=== PATIENT | male | born 1985 | race Caucasian/White ===

== ENCOUNTER 2022-08-20 10:09 | Inpatient (IN) | payer OTHER ==
[2022-08-20 10:53] VITALS: BMI 29.4
[2022-08-20] MEDS ORDERED: BENZOCAINE/MENTHOL (CHLORASEPTIC ) LOZENGE MM PRN (11:59)
[2022-08-20] MEDS ORDERED: DICYCLOMINE HCL 10 MG CAPSULE PO PRN (11:59)
[2022-08-20] MEDS ORDERED: NALOXONE HCL (KLOXXADO) 8 MG SPRAY NS PRN (11:59)
[2022-08-20] MEDS ORDERED: MAGNESIUM HYDROX 2400MG/30ML ORAL SUSPENSION 30 ML CUP PO PRN (11:59)
[2022-08-20] MEDS ORDERED: ACETAMINOPHEN 325 MG TABLET (FP) PO PRN ×2 (11:59)
[2022-08-20] MEDS ORDERED: IBUPROFEN 600 MG TABLET (FP) PO PRN (11:59)
[2022-08-20] MEDS ORDERED: ONDANSETRON *ODT* 4 MG TABLET SL PRN (11:59)
[2022-08-20] MEDS ORDERED: MAGNESIUM CITRATE 300 ML BOTTLE PO PRN (11:59)
[2022-08-20] MEDS ORDERED: IBUPROFEN 400 MG TABLET (FP) PO PRN (11:59)
[2022-08-20] MEDS ORDERED: NICOTINE POLACRILEX 2 MG GUM BUC PRN (11:59)
[2022-08-20] MEDS ORDERED: BISMUTH SUBSALICYLATE 524 MG/30 ML PO PRN (11:59)
[2022-08-20] MEDS ORDERED: MAG HYDROX/AL HYDROX/SIMETH 30 ML UNIT-DOSE CUP PO PRN (11:59)
[2022-08-20] MEDS ORDERED: LOPERAMIDE HCL 2 MG CAPSULE PO PRN (11:59)
[2022-08-20] MEDS ORDERED: ALBUTEROL SO4 HFA INHALER IH SCH (12:15)
[2022-08-20] MEDS: PRENATAL VITAMINS W/ FOLIC ACID TABLET (FP) PO SCH (13:02)
[2022-08-20] MEDS ORDERED: ALBUTEROL SO4 HFA INHALER IH PRN (13:02)
[2022-08-20 15:28] LABS: HEMATOCRIT 40.1 % (35.4-49); MCH 30.1 pg (25.7-33.7); MCHC 34.9 g/dl (32.0-35.9); MEAN CELL VOLUME 86.1 fl (80-96); MEAN PLT VOLUME 7.6 fl (7.5-11.1); PLATELET COUNT 336 10^3/uL (134-434); RBC 4.66 M/mm3 (4.00-5.60); RDW 13.2 % (11.9-15.9); WHITE BLOOD COUNT 6.3 K/mm3 (4.0-10.0)
[2022-08-20 15:37] LABS: ALBUMIN 3.5 g/dl (3.4-5.0); CALCIUM 8.5 mg/dL (8.5-10.1)
[2022-08-20 15:39] LABS: BLOOD UREA NITROGEN 8.6 mg/dL (7-18); CREATININE 0.9 mg/dL (0.55-1.3)
[2022-08-20 15:40] LABS: BILIRUBIN,TOTAL 0.2 mg/dL (0.2-1); TOT PROT 6.8 g/dl (6.4-8.2)
[2022-08-20] MEDS: NICOTINE 10 MG CARTRIDGE (INHALER) IH PRN ×2 (18:15→22:41)
[2022-08-20] MEDS ORDERED: MELATONIN 5 MG TABLETS PO SCH (22:00)
[2022-08-20] MEDS ORDERED: THIAMINE HCL 100 MG TABLET (FP) PO SCH (22:00)
[2022-08-20] MEDS: METHOCARBAMOL 500 MG TABLET PO PRN (22:43)
[2022-08-20] MEDS: hydrOXYzine PAMOATE 25 MG CAPSULE (FP) PO PRN (22:43)
[2022-08-21 09:44] VITALS: RESP 16
[2022-08-21] MEDS: PRENATAL VITAMINS W/ FOLIC ACID TABLET (FP) PO SCH (10:41)
[2022-08-21] MEDS: hydrOXYzine PAMOATE 25 MG CAPSULE (FP) PO PRN (10:42)
[2022-08-21] MEDS: METHOCARBAMOL 500 MG TABLET PO PRN (10:42)
[2022-08-21 13:06] VITALS: BP 115/72; PULSE 62; TEMP 97.7
[2022-08-21] MEDS ORDERED: MELATONIN 5 MG TABLETS PO SCH (22:00)
== END 2022-08-21 13:05 | disposition other institution (70) | DRG 774 ==
LOC: YASAS 10:09 → UNDOADMIN 11:47 → Y3N 11:47
PROVIDERS: ADMIT Allergy & Immunology; ATTEND Surgery
PROC: HZ2ZZZZ Detoxification Services for Substance Abuse Treatment (ICD-10-PCS; principal; 2022-08-20)
DX: F10.230 Alcohol dependence with withdrawal, uncomplicated (principal); F14.20 Cocaine dependence, uncomplicated; F12.20 Cannabis dependence, uncomplicated; F17.210 Nicotine dependence, cigarettes, uncomplicated; F19.282 Other psychoactive substance dependence with psychoactive substance-induced sleep disorder; F41.8 Other specified anxiety disorders; I10 Essential (primary) hypertension; J45.20 Mild intermittent asthma, uncomplicated; Z56.0 Unemployment, unspecified; Z59.00 Homelessness unspecified
CPT/HCPCS: 36415; 80053; 85027; 86780; 87811; C9803-CS; U0003; U0005

== ENCOUNTER 2022-08-21 13:10 | Inpatient (IN) | payer OTHER ==
[2022-08-21] MEDS ORDERED: MAG HYDROX/AL HYDROX/SIMETH 30 ML UNIT-DOSE CUP PO PRN (14:52)
[2022-08-21] MEDS ORDERED: MAGNESIUM CITRATE 300 ML BOTTLE PO PRN (14:52)
[2022-08-21] MEDS ORDERED: IBUPROFEN 400 MG TABLET (FP) PO PRN (14:52)
[2022-08-21] MEDS ORDERED: BENZOCAINE/MENTHOL (CHLORASEPTIC ) LOZENGE MM PRN (14:52)
[2022-08-21] MEDS ORDERED: guaiFENesin 200 MG/10 ML 10 ML UNIT-DOSE CUPS PO PRN (14:52)
[2022-08-21] MEDS ORDERED: NICOTINE POLACRILEX 2 MG GUM BUC PRN (14:52)
[2022-08-21] MEDS ORDERED: MAGNESIUM HYDROX 2400MG/30ML ORAL SUSPENSION 30 ML CUP PO PRN (14:52)
[2022-08-21] MEDS ORDERED: LOPERAMIDE HCL 2 MG CAPSULE PO PRN (14:52)
[2022-08-21] MEDS ORDERED: ACETAMINOPHEN 325 MG TABLET (FP) PO PRN (14:52)
[2022-08-21] MEDS ORDERED: ALBUTEROL SO4 HFA INHALER IH PRN (14:53)
[2022-08-21] MEDS: NICOTINE 10 MG CARTRIDGE (INHALER) IH PRN (17:40)
[2022-08-21] MEDS: THIAMINE HCL 100 MG TABLET (FP) PO SCH (21:30)
[2022-08-21] MEDS: MELATONIN 5 MG TABLETS PO PRN (21:30)
[2022-08-22 06:47] VITALS: RESP 18
[2022-08-22] MEDS: PRENATAL VITAMINS W/ FOLIC ACID TABLET (FP) PO SCH (10:26)
[2022-08-22] MEDS: NICOTINE 10 MG CARTRIDGE (INHALER) IH PRN ×2 (12:00→21:35)
[2022-08-22] MEDS: MELATONIN 5 MG TABLETS PO PRN (21:34)
[2022-08-22] MEDS: THIAMINE HCL 100 MG TABLET (FP) PO SCH (21:34)
[2022-08-23] MEDS: NICOTINE 10 MG CARTRIDGE (INHALER) IH PRN (10:13)
[2022-08-23] MEDS: PRENATAL VITAMINS W/ FOLIC ACID TABLET (FP) PO SCH (10:13)
[2022-08-23] MEDS: THIAMINE HCL 100 MG TABLET (FP) PO SCH (21:21)
[2022-08-23] MEDS: MELATONIN 5 MG TABLETS PO PRN (21:21)
[2022-08-24] MEDS: PRENATAL VITAMINS W/ FOLIC ACID TABLET (FP) PO SCH (10:23)
[2022-08-24] MEDS: NICOTINE 10 MG CARTRIDGE (INHALER) IH PRN ×3 (10:24→18:20)
[2022-08-24] MEDS: THIAMINE HCL 100 MG TABLET (FP) PO SCH (21:11)
[2022-08-24] MEDS: MELATONIN 5 MG TABLETS PO PRN (21:11)
[2022-08-25] MEDS: NICOTINE 10 MG CARTRIDGE (INHALER) IH PRN ×3 (08:07→21:36)
[2022-08-25] MEDS: PRENATAL VITAMINS W/ FOLIC ACID TABLET (FP) PO SCH (10:16)
[2022-08-25] MEDS: MELATONIN 5 MG TABLETS PO PRN (21:36)
[2022-08-25] MEDS: THIAMINE HCL 100 MG TABLET (FP) PO SCH (21:36)
[2022-08-25] MEDS: SUVOREXANT 10 MG TABLET PO PRN (22:06)
[2022-08-26] MEDS: NICOTINE 10 MG CARTRIDGE (INHALER) IH PRN ×2 (09:57→21:39)
[2022-08-26] MEDS: PRENATAL VITAMINS W/ FOLIC ACID TABLET (FP) PO SCH (09:57)
[2022-08-26] MEDS: MELATONIN 5 MG TABLETS PO PRN (21:39)
[2022-08-26] MEDS: SUVOREXANT 10 MG TABLET PO PRN (21:39)
[2022-08-26] MEDS: THIAMINE HCL 100 MG TABLET (FP) PO SCH (21:39)
[2022-08-27] MEDS: PRENATAL VITAMINS W/ FOLIC ACID TABLET (FP) PO SCH (10:07)
[2022-08-27] MEDS: NICOTINE 10 MG CARTRIDGE (INHALER) IH PRN (16:07)
[2022-08-27] MEDS: THIAMINE HCL 100 MG TABLET (FP) PO SCH (21:41)
[2022-08-27] MEDS: MELATONIN 5 MG TABLETS PO PRN (21:42)
[2022-08-27] MEDS: SUVOREXANT 10 MG TABLET PO PRN (21:42)
[2022-08-28] MEDS: NICOTINE 10 MG CARTRIDGE (INHALER) IH PRN ×3 (06:30→21:37)
[2022-08-28] MEDS: PRENATAL VITAMINS W/ FOLIC ACID TABLET (FP) PO SCH (10:23)
[2022-08-28] MEDS: THIAMINE HCL 100 MG TABLET (FP) PO SCH (21:36)
[2022-08-28] MEDS: MELATONIN 5 MG TABLETS PO PRN (21:36)
[2022-08-28] MEDS: SUVOREXANT 10 MG TABLET PO PRN (21:37)
[2022-08-29] MEDS: NICOTINE 10 MG CARTRIDGE (INHALER) IH PRN ×4 (06:37→22:12)
[2022-08-29] MEDS: PRENATAL VITAMINS W/ FOLIC ACID TABLET (FP) PO SCH (10:27)
[2022-08-29] MEDS: P-EPHED 60MG/TRIPROLIDI 2.5MG TABLET PO PRN ×2 (10:28→21:35)
[2022-08-29] MEDS: MELATONIN 5 MG TABLETS PO PRN (21:33)
[2022-08-29] MEDS: THIAMINE HCL 100 MG TABLET (FP) PO SCH (21:33)
[2022-08-29] MEDS: SUVOREXANT 10 MG TABLET PO PRN (21:35)
[2022-08-30] MEDS: NICOTINE 10 MG CARTRIDGE (INHALER) IH PRN ×3 (10:16→21:30)
[2022-08-30] MEDS: PRENATAL VITAMINS W/ FOLIC ACID TABLET (FP) PO SCH (10:16)
[2022-08-30] MEDS: THIAMINE HCL 100 MG TABLET (FP) PO SCH (21:30)
[2022-08-30] MEDS: SUVOREXANT 10 MG TABLET PO PRN (21:31)
[2022-08-30] MEDS: MELATONIN 5 MG TABLETS PO PRN (21:32)
[2022-08-30] MEDS: P-EPHED 60MG/TRIPROLIDI 2.5MG TABLET PO PRN (21:32)
[2022-08-31] MEDS: NICOTINE 10 MG CARTRIDGE (INHALER) IH PRN ×2 (07:53→14:49)
[2022-08-31] MEDS: PRENATAL VITAMINS W/ FOLIC ACID TABLET (FP) PO SCH (09:42)
[2022-08-31] MEDS: SUVOREXANT 10 MG TABLET PO PRN (21:36)
[2022-08-31] MEDS: THIAMINE HCL 100 MG TABLET (FP) PO SCH (21:36)
[2022-08-31] MEDS: MELATONIN 5 MG TABLETS PO PRN (21:36)
[2022-09-01] MEDS: NICOTINE 10 MG CARTRIDGE (INHALER) IH PRN ×3 (08:30→21:19)
[2022-09-01] MEDS: PRENATAL VITAMINS W/ FOLIC ACID TABLET (FP) PO SCH (10:50)
[2022-09-01] MEDS: MELATONIN 5 MG TABLETS PO PRN (21:18)
[2022-09-01] MEDS: SUVOREXANT 10 MG TABLET PO PRN (21:18)
[2022-09-01] MEDS: THIAMINE HCL 100 MG TABLET (FP) PO SCH (21:18)
[2022-09-01] MEDS: P-EPHED 60MG/TRIPROLIDI 2.5MG TABLET PO PRN (21:19)
[2022-09-02 07:00] VITALS: BP 133/93; PULSE 86; TEMP 97.7
[2022-09-02] MEDS: PRENATAL VITAMINS W/ FOLIC ACID TABLET (FP) PO SCH (09:50)
[2022-09-02] MEDS: NICOTINE 10 MG CARTRIDGE (INHALER) IH PRN (16:38)
== END 2022-09-02 17:56 | disposition home or self-care (01) | DRG 772 ==
LOC: YASAS 13:10 → Y3W 13:11
PROVIDERS: ADMIT Allergy & Immunology; ATTEND Psychiatry & Neurology Pain Medicine
PROC: HZ42ZZZ Group Counseling for Substance Abuse Treatment, Cognitive-Behavioral (ICD-10-PCS; principal; 2022-08-21)
DX: F10.20 Alcohol dependence, uncomplicated (principal); F14.20 Cocaine dependence, uncomplicated; F12.20 Cannabis dependence, uncomplicated; F17.210 Nicotine dependence, cigarettes, uncomplicated; G47.00 Insomnia, unspecified; I10 Essential (primary) hypertension; J45.20 Mild intermittent asthma, uncomplicated

== ENCOUNTER 2022-11-18 19:51 | Inpatient (IN) | payer OTHER ==
[2022-11-18 20:54] VITALS: BMI 29.9
[2022-11-18] MEDS ORDERED: ALBUTEROL SO4 HFA INHALER IH PRN (21:23)
[2022-11-18] MEDS ORDERED: MAGNESIUM HYDROX 2400MG/30ML ORAL SUSPENSION 30 ML CUP PO PRN (21:26)
[2022-11-18] MEDS ORDERED: LOPERAMIDE HCL 2 MG CAPSULE PO PRN (21:26)
[2022-11-18] MEDS ORDERED: P-EPHED 60MG/TRIPROLIDI 2.5MG TABLET PO PRN (21:26)
[2022-11-18] MEDS ORDERED: MAG HYDROX/AL HYDROX/SIMETH 30 ML UNIT-DOSE CUP PO PRN (21:26)
[2022-11-18] MEDS ORDERED: POLYETHYLENE GLYCOL (HEALTHYLAX) 3350 17 GM PACKET PO PRN (21:26)
[2022-11-18] MEDS ORDERED: guaiFENesin 200 MG/10 ML 10 ML UNIT-DOSE CUPS PO PRN (21:26)
[2022-11-18] MEDS ORDERED: NICOTINE POLACRILEX 2 MG GUM BC PRN (21:26)
[2022-11-18] MEDS ORDERED: BENZOCAINE/MENTHOL (CHLORASEPTIC ) LOZENGE MM PRN (21:26)
[2022-11-18] MEDS: THIAMINE HCL 100 MG TABLET (FP) PO SCH (23:33)
[2022-11-19] MEDS: NICOTINE 10 MG CARTRIDGE (INHALER) IH PRN ×2 (06:51→12:27)
[2022-11-19] MEDS: PRENATAL VITAMINS W/ FOLIC ACID TABLET (FP) PO SCH (09:47)
[2022-11-19 10:51] LABS: HEMOGLOBIN 14.6 GM/dL (11.7-16.9); MCH 29.1 pg (25.7-33.7); MCHC 33.9 g/dl (32.0-35.9); MEAN CELL VOLUME 85.9 fl (80-96); MEAN PLT VOLUME 7.4 fl (7.5-11.1); PLATELET COUNT 377 10^3/uL (134-434); RBC 5.01 M/mm3 (4.00-5.60); RDW 13.4 % (11.9-15.9)
[2022-11-19 10:53] LABS: CALCIUM 9.1 mg/dL (8.5-10.1)
[2022-11-19 10:54] LABS: ALBUMIN 4.2 g/dl (3.4-5.0); BLOOD UREA NITROGEN 21.6 mg/dL (7-18)
[2022-11-19 10:57] LABS: CREATININE 1.1 mg/dL (0.55-1.3)
[2022-11-19 10:58] LABS: BILIRUBIN,TOTAL 1.1 mg/dL (0.2-1)
[2022-11-19 10:59] LABS: TOT PROT 7.3 g/dl (6.4-8.2)
[2022-11-19 12:48] LABS: EPI CELLS 1 /uL (0-25.1); HYALINE CASTS 0 /uL (0-3.1); URINE APPEARANCE CLEAR; URINE BACTERIA 1 /uL (0-1359); URINE BILIRUBIN NEGATIVE (NEGATIVE); URINE COLOR YELLOW; URINE GLUCOSE (UA) NEGATIVE (NEGATIVE); URINE KETONE TRACE (NEGATIVE); URINE LEUK ESTERASE NEGATIVE (NEGATIVE); URINE NITRITE NEGATIVE (NEGATIVE); URINE PROTEIN NEGATIVE (NEGATIVE); URINE RBC 52 /uL (0-23.9); URINE UROBILINOGEN 0.2 mg/dL (0.2-1.0); URINE WBC 5 /uL (0-25.8)
[2022-11-19] MEDS: THIAMINE HCL 100 MG TABLET (FP) PO SCH (22:22)
[2022-11-20] MEDS: PRENATAL VITAMINS W/ FOLIC ACID TABLET (FP) PO SCH (09:49)
[2022-11-20] MEDS: NICOTINE 10 MG CARTRIDGE (INHALER) IH PRN ×2 (09:50→18:39)
[2022-11-20] MEDS: DOCUSATE SODIUM 100 MG CAPSULE (FP) PO SCH ×2 (14:23→21:23)
[2022-11-20] MEDS: IBUPROFEN 400 MG TABLET (FP) PO PRN (18:38)
[2022-11-20] MEDS: hydrOXYzine PAMOATE 25 MG CAPSULE (FP) PO PRN (21:23)
[2022-11-20] MEDS: THIAMINE HCL 100 MG TABLET (FP) PO SCH (21:23)
[2022-11-20] MEDS: MELATONIN 5 MG TABLETS PO PRN (21:23)
[2022-11-20] MEDS: MIRTAZAPINE 15 MG TABLET (FP) PO SCH (21:25)
[2022-11-20] MEDS: ACETAMINOPHEN 325 MG TABLET (FP) PO PRN (21:25)
[2022-11-21] MEDS: NICOTINE 10 MG CARTRIDGE (INHALER) IH PRN (07:41)
[2022-11-21] MEDS: PRENATAL VITAMINS W/ FOLIC ACID TABLET (FP) PO SCH (10:13)
[2022-11-21] MEDS: DOCUSATE SODIUM 100 MG CAPSULE (FP) PO SCH ×2 (10:13→21:40)
[2022-11-21] MEDS: ACETAMINOPHEN 325 MG TABLET (FP) PO PRN ×2 (12:44→18:45)
[2022-11-21] MEDS: THIAMINE HCL 100 MG TABLET (FP) PO SCH (21:40)
[2022-11-21] MEDS: MIRTAZAPINE 15 MG TABLET (FP) PO SCH (21:40)
[2022-11-22] MEDS: DOCUSATE SODIUM 100 MG CAPSULE (FP) PO SCH ×2 (09:57→21:20)
[2022-11-22] MEDS: IBUPROFEN 400 MG TABLET (FP) PO PRN (09:58)
[2022-11-22] MEDS: PRENATAL VITAMINS W/ FOLIC ACID TABLET (FP) PO SCH (09:58)
[2022-11-22] MEDS: MIRTAZAPINE 15 MG TABLET (FP) PO SCH (21:19)
[2022-11-22] MEDS: THIAMINE HCL 100 MG TABLET (FP) PO SCH (21:19)
[2022-11-22] MEDS: MELATONIN 5 MG TABLETS PO PRN (21:19)
[2022-11-23] MEDS: DOCUSATE SODIUM 100 MG CAPSULE (FP) PO SCH ×2 (11:00→21:07)
[2022-11-23] MEDS: NICOTINE 10 MG CARTRIDGE (INHALER) IH PRN (11:00)
[2022-11-23] MEDS: PRENATAL VITAMINS W/ FOLIC ACID TABLET (FP) PO SCH (11:07)
[2022-11-23] MEDS: HYDROCHLOROTHIAZIDE 12.5 MG CAPSULE (FP) PO SCH (11:32)
[2022-11-23] MEDS: BACLOFEN 10 MG TABLET (FP) PO SCH ×2 (13:59→21:07)
[2022-11-23] MEDS: IBUPROFEN 400 MG TABLET (FP) PO PRN (19:14)
[2022-11-23] MEDS: hydrOXYzine PAMOATE 25 MG CAPSULE (FP) PO PRN (21:07)
[2022-11-23] MEDS: MELATONIN 5 MG TABLETS PO PRN (21:07)
[2022-11-23] MEDS: THIAMINE HCL 100 MG TABLET (FP) PO SCH (21:07)
[2022-11-23] MEDS: MIRTAZAPINE 15 MG TABLET (FP) PO SCH (21:07)
[2022-11-24] MEDS: BACLOFEN 10 MG TABLET (FP) PO SCH ×3 (06:52→21:32)
[2022-11-24] MEDS: PRENATAL VITAMINS W/ FOLIC ACID TABLET (FP) PO SCH (10:09)
[2022-11-24] MEDS: NICOTINE 10 MG CARTRIDGE (INHALER) IH PRN ×3 (10:09→21:59)
[2022-11-24] MEDS: DOCUSATE SODIUM 100 MG CAPSULE (FP) PO SCH ×2 (10:09→21:32)
[2022-11-24] MEDS: HYDROCHLOROTHIAZIDE 12.5 MG CAPSULE (FP) PO SCH (10:25)
[2022-11-24] MEDS: IBUPROFEN 400 MG TABLET (FP) PO PRN ×2 (10:26→18:27)
[2022-11-24 10:48] LABS: BASO % 0.9 % (0-2.0); EOS % 2.7 % (0-4.5); HEMATOCRIT 46.9 % (35.4-49); LYMPH % 27.2 % (8-40); MCH 29.4 pg (25.7-33.7); MCHC 34.1 g/dl (32.0-35.9); MEAN CELL VOLUME 86.2 fl (80-96); MEAN PLT VOLUME 7.9 fl (7.5-11.1); NEUT % 62.2 % (42.8-82.8); PLATELET COUNT 416 10^3/uL (134-434); RBC 5.44 M/mm3 (4.00-5.60); RDW 13.1 % (11.9-15.9); WHITE BLOOD COUNT 9.2 K/mm3 (4.0-10.0)
[2022-11-24] MEDS: THIAMINE HCL 100 MG TABLET (FP) PO SCH (21:32)
[2022-11-24] MEDS: MIRTAZAPINE 15 MG TABLET (FP) PO SCH (21:32)
[2022-11-24] MEDS: hydrOXYzine PAMOATE 25 MG CAPSULE (FP) PO PRN (21:32)
[2022-11-25] MEDS: BACLOFEN 10 MG TABLET (FP) PO SCH ×3 (06:51→21:13)
[2022-11-25] MEDS: HYDROCHLOROTHIAZIDE 12.5 MG CAPSULE (FP) PO SCH (09:51)
[2022-11-25] MEDS: DOCUSATE SODIUM 100 MG CAPSULE (FP) PO SCH ×2 (09:51→21:13)
[2022-11-25] MEDS: PRENATAL VITAMINS W/ FOLIC ACID TABLET (FP) PO SCH (09:51)
[2022-11-25] MEDS: NICOTINE 10 MG CARTRIDGE (INHALER) IH PRN ×2 (09:52→21:13)
[2022-11-25] MEDS: IBUPROFEN 400 MG TABLET (FP) PO PRN (21:12)
[2022-11-25] MEDS: MELATONIN 5 MG TABLETS PO PRN (21:12)
[2022-11-25] MEDS: THIAMINE HCL 100 MG TABLET (FP) PO SCH (21:12)
[2022-11-25] MEDS: MIRTAZAPINE 15 MG TABLET (FP) PO SCH (21:13)
[2022-11-26] MEDS: BACLOFEN 10 MG TABLET (FP) PO SCH ×3 (06:29→21:11)
[2022-11-26] MEDS: PRENATAL VITAMINS W/ FOLIC ACID TABLET (FP) PO SCH (09:42)
[2022-11-26] MEDS: NICOTINE 10 MG CARTRIDGE (INHALER) IH PRN ×2 (09:42→14:53)
[2022-11-26] MEDS: DOCUSATE SODIUM 100 MG CAPSULE (FP) PO SCH ×2 (09:42→21:11)
[2022-11-26] MEDS: HYDROCHLOROTHIAZIDE 12.5 MG CAPSULE (FP) PO SCH (09:44)
[2022-11-26] MEDS: IBUPROFEN 400 MG TABLET (FP) PO PRN (09:45)
[2022-11-26] MEDS: THIAMINE HCL 100 MG TABLET (FP) PO SCH (21:10)
[2022-11-26] MEDS: MELATONIN 5 MG TABLETS PO PRN (21:10)
[2022-11-26] MEDS: MIRTAZAPINE 15 MG TABLET (FP) PO SCH (21:11)
[2022-11-27] MEDS: BACLOFEN 10 MG TABLET (FP) PO SCH ×3 (07:33→21:16)
[2022-11-27] MEDS: NICOTINE 10 MG CARTRIDGE (INHALER) IH PRN ×3 (08:47→21:15)
[2022-11-27] MEDS: PRENATAL VITAMINS W/ FOLIC ACID TABLET (FP) PO SCH (09:44)
[2022-11-27] MEDS: DOCUSATE SODIUM 100 MG CAPSULE (FP) PO SCH ×2 (09:44→21:16)
[2022-11-27] MEDS: HYDROCHLOROTHIAZIDE 12.5 MG CAPSULE (FP) PO SCH (09:44)
[2022-11-27] MEDS: MELATONIN 5 MG TABLETS PO PRN (21:14)
[2022-11-27] MEDS: THIAMINE HCL 100 MG TABLET (FP) PO SCH (21:14)
[2022-11-27] MEDS: IBUPROFEN 400 MG TABLET (FP) PO PRN (21:16)
[2022-11-27] MEDS: MIRTAZAPINE 15 MG TABLET (FP) PO SCH (21:16)
[2022-11-28] MEDS: BACLOFEN 10 MG TABLET (FP) PO SCH ×3 (06:47→21:27)
[2022-11-28] MEDS: PRENATAL VITAMINS W/ FOLIC ACID TABLET (FP) PO SCH (10:01)
[2022-11-28] MEDS: DOCUSATE SODIUM 100 MG CAPSULE (FP) PO SCH ×2 (10:01→21:27)
[2022-11-28] MEDS: HYDROCHLOROTHIAZIDE 12.5 MG CAPSULE (FP) PO SCH (10:03)
[2022-11-28] MEDS: NICOTINE 10 MG CARTRIDGE (INHALER) IH PRN ×3 (13:04→21:27)
[2022-11-28] MEDS: hydrOXYzine PAMOATE 25 MG CAPSULE (FP) PO PRN ×2 (13:46→21:27)
[2022-11-28] MEDS: MIRTAZAPINE 15 MG TABLET (FP) PO SCH (21:28)
[2022-11-28] MEDS: MELATONIN 5 MG TABLETS PO PRN (21:28)
[2022-11-28] MEDS: THIAMINE HCL 100 MG TABLET (FP) PO SCH (21:28)
[2022-11-29] MEDS: BACLOFEN 10 MG TABLET (FP) PO SCH ×3 (06:35→21:25)
[2022-11-29] MEDS: PRENATAL VITAMINS W/ FOLIC ACID TABLET (FP) PO SCH (09:43)
[2022-11-29] MEDS: HYDROCHLOROTHIAZIDE 12.5 MG CAPSULE (FP) PO SCH (09:43)
[2022-11-29] MEDS: DOCUSATE SODIUM 100 MG CAPSULE (FP) PO SCH ×2 (09:43→21:25)
[2022-11-29] MEDS: NICOTINE 10 MG CARTRIDGE (INHALER) IH PRN ×2 (12:50→21:24)
[2022-11-29] MEDS: hydrOXYzine PAMOATE 25 MG CAPSULE (FP) PO PRN (21:25)
[2022-11-29] MEDS: THIAMINE HCL 100 MG TABLET (FP) PO SCH (21:25)
[2022-11-29] MEDS: IBUPROFEN 400 MG TABLET (FP) PO PRN (21:25)
[2022-11-29] MEDS: MIRTAZAPINE 15 MG TABLET (FP) PO SCH (21:25)
[2022-11-29] MEDS: MELATONIN 5 MG TABLETS PO PRN (21:26)
[2022-11-30] MEDS: BACLOFEN 10 MG TABLET (FP) PO SCH ×3 (06:44→21:18)
[2022-11-30] MEDS: NICOTINE 10 MG CARTRIDGE (INHALER) IH PRN ×4 (08:20→21:18)
[2022-11-30] MEDS: PRENATAL VITAMINS W/ FOLIC ACID TABLET (FP) PO SCH (10:31)
[2022-11-30] MEDS: HYDROCHLOROTHIAZIDE 12.5 MG CAPSULE (FP) PO SCH (10:31)
[2022-11-30] MEDS: DOCUSATE SODIUM 100 MG CAPSULE (FP) PO SCH ×2 (10:31→21:18)
[2022-11-30] MEDS: MIRTAZAPINE 15 MG TABLET (FP) PO SCH (21:18)
[2022-11-30] MEDS: THIAMINE HCL 100 MG TABLET (FP) PO SCH (21:18)
[2022-11-30] MEDS: MELATONIN 5 MG TABLETS PO PRN (21:18)
[2022-11-30] MEDS: IBUPROFEN 400 MG TABLET (FP) PO PRN (21:19)
[2022-12-01] MEDS: BACLOFEN 10 MG TABLET (FP) PO SCH ×3 (07:12→21:16)
[2022-12-01] MEDS: NICOTINE 10 MG CARTRIDGE (INHALER) IH PRN ×2 (10:17→21:15)
[2022-12-01] MEDS: DOCUSATE SODIUM 100 MG CAPSULE (FP) PO SCH ×2 (10:17→21:16)
[2022-12-01] MEDS: HYDROCHLOROTHIAZIDE 12.5 MG CAPSULE (FP) PO SCH (10:17)
[2022-12-01] MEDS: PRENATAL VITAMINS W/ FOLIC ACID TABLET (FP) PO SCH (10:17)
[2022-12-01] MEDS: THIAMINE HCL 100 MG TABLET (FP) PO SCH (21:15)
[2022-12-01] MEDS: MELATONIN 5 MG TABLETS PO PRN (21:15)
[2022-12-01] MEDS: IBUPROFEN 400 MG TABLET (FP) PO PRN (21:16)
[2022-12-01] MEDS: MIRTAZAPINE 15 MG TABLET (FP) PO SCH (21:16)
[2022-12-02] MEDS: BACLOFEN 10 MG TABLET (FP) PO SCH ×3 (06:31→21:27)
[2022-12-02 06:46] VITALS: RESP 20; TEMP 97.3
[2022-12-02] MEDS: NICOTINE 10 MG CARTRIDGE (INHALER) IH PRN ×2 (08:41→13:51)
[2022-12-02] MEDS: HYDROCHLOROTHIAZIDE 12.5 MG CAPSULE (FP) PO SCH (09:50)
[2022-12-02] MEDS: DOCUSATE SODIUM 100 MG CAPSULE (FP) PO SCH ×2 (09:50→21:26)
[2022-12-02] MEDS: PRENATAL VITAMINS W/ FOLIC ACID TABLET (FP) PO SCH (09:50)
[2022-12-02] MEDS: IBUPROFEN 400 MG TABLET (FP) PO PRN (21:26)
[2022-12-02] MEDS: THIAMINE HCL 100 MG TABLET (FP) PO SCH (21:26)
[2022-12-02] MEDS: MELATONIN 5 MG TABLETS PO PRN (21:26)
[2022-12-02] MEDS: MIRTAZAPINE 15 MG TABLET (FP) PO SCH (21:27)
[2022-12-03] MEDS: BACLOFEN 10 MG TABLET (FP) PO SCH (06:46)
[2022-12-03] MEDS: NICOTINE 10 MG CARTRIDGE (INHALER) IH PRN (07:05)
[2022-12-03] MEDS: HYDROCHLOROTHIAZIDE 12.5 MG CAPSULE (FP) PO SCH (09:04)
[2022-12-03] MEDS: DOCUSATE SODIUM 100 MG CAPSULE (FP) PO SCH (09:04)
[2022-12-03] MEDS: PRENATAL VITAMINS W/ FOLIC ACID TABLET (FP) PO SCH (09:05)
[2022-12-03 09:09] VITALS: BP 139/79; PULSE 114
== END 2022-12-03 09:16 | disposition home or self-care (01) | DRG 772 ==
LOC: YASAS 19:51 → Y3E 11-19 01:28
PROVIDERS: ADMIT Allergy & Immunology; ATTEND Allergy & Immunology
PROC: HZ42ZZZ Group Counseling for Substance Abuse Treatment, Cognitive-Behavioral (ICD-10-PCS; principal; 2022-11-19)
DX: F10.20 Alcohol dependence, uncomplicated (principal); F14.20 Cocaine dependence, uncomplicated; F12.20 Cannabis dependence, uncomplicated; F17.210 Nicotine dependence, cigarettes, uncomplicated; F19.282 Other psychoactive substance dependence with psychoactive substance-induced sleep disorder; F19.24 Other psychoactive substance dependence with psychoactive substance-induced mood disorder; F41.9 Anxiety disorder, unspecified; F32.A Depression, unspecified; I10 Essential (primary) hypertension; J45.20 Mild intermittent asthma, uncomplicated; Z56.0 Unemployment, unspecified; Z59.00 Homelessness unspecified
CPT/HCPCS: 36415; 80053; 81003; 83036; 85025; 85027; 86780; 87811; 93005; 93010; C9803-CS; J0475; U0003; U0005

== ENCOUNTER 2022-12-04 04:59 | Inpatient (IN) | payer OTHER ==
[2022-12-04] MEDS ORDERED: chlordiazePOXIDE HCL 25 MG CAPSULE PO SCH (05:00)
[2022-12-04 05:53] VITALS: RESP 20; TEMP 97.5; BMI 32.8
[2022-12-04] MEDS ORDERED: NICOTINE 10 MG CARTRIDGE (INHALER) IH PRN (05:57)
[2022-12-04] MEDS ORDERED: ONDANSETRON *ODT* 4 MG TABLET SL PRN (05:57)
[2022-12-04] MEDS ORDERED: NALOXONE HCL (KLOXXADO) 8 MG SPRAY NS PRN (05:57)
[2022-12-04] MEDS ORDERED: LOPERAMIDE HCL 2 MG CAPSULE PO PRN (05:57)
[2022-12-04] MEDS ORDERED: IBUPROFEN 600 MG TABLET (FP) PO PRN (05:57)
[2022-12-04] MEDS ORDERED: BISMUTH SUBSALICYLATE 524 MG/30 ML PO PRN (05:57)
[2022-12-04] MEDS ORDERED: BENZOCAINE/MENTHOL (CHLORASEPTIC ) LOZENGE MM PRN (05:57)
[2022-12-04] MEDS ORDERED: DICYCLOMINE HCL 10 MG CAPSULE PO PRN (05:57)
[2022-12-04] MEDS ORDERED: METHOCARBAMOL 500 MG TABLET PO PRN (05:57)
[2022-12-04] MEDS ORDERED: POLYETHYLENE GLYCOL (HEALTHYLAX) 3350 17 GM PACKET PO PRN (05:57)
[2022-12-04] MEDS ORDERED: ACETAMINOPHEN 325 MG TABLET (FP) PO PRN ×2 (05:57)
[2022-12-04] MEDS ORDERED: MAG HYDROX/AL HYDROX/SIMETH 30 ML UNIT-DOSE CUP PO PRN (05:57)
[2022-12-04] MEDS ORDERED: MAGNESIUM HYDROX 2400MG/30ML ORAL SUSPENSION 30 ML CUP PO PRN (05:57)
[2022-12-04] MEDS ORDERED: IBUPROFEN 400 MG TABLET (FP) PO PRN (05:57)
[2022-12-04] MEDS ORDERED: chlordiazePOXIDE HCL 25 MG CAPSULE PO PRN (06:12)
[2022-12-04] MEDS ORDERED: chlordiazePOXIDE HCL 25 MG CAPSULE ONE (07:05)
[2022-12-04 09:28] VITALS: BP 154/108; PULSE 114
[2022-12-04] MEDS ORDERED: cloNIDine HCL 0.1 MG TABLET PO STA (10:00)
[2022-12-04] MEDS ORDERED: NICOTINE 14 MG/24 HOURS TOPICAL PATCH TD SCH (10:00)
[2022-12-04] MEDS ORDERED: PRENATAL VITAMINS W/ FOLIC ACID TABLET (FP) PO SCH (10:00)
[2022-12-04] MEDS ORDERED: cloNIDine HCL 0.1 MG TABLET ONE (10:17)
[2022-12-04] MEDS ORDERED: PRENATAL VITAMINS W/ FOLIC ACID TABLET (FP) PO ONE (10:18)
[2022-12-04] MEDS ORDERED: NICOTINE 14 MG/24 HOURS TOPICAL PATCH TD ONE (10:18)
[2022-12-04] MEDS ORDERED: THIAMINE HCL 100 MG TABLET (FP) PO SCH (22:00)
[2022-12-04] MEDS ORDERED: MELATONIN 5 MG TABLETS PO SCH (22:00)
[2022-12-05] MEDS ORDERED: chlordiazePOXIDE HCL 25 MG CAPSULE PO SCH (05:00)
[2022-12-06] MEDS ORDERED: chlordiazePOXIDE HCL 10 MG CAPSULE PO PRN
[2022-12-06] MEDS ORDERED: chlordiazePOXIDE HCL 10 MG CAPSULE PO SCH (05:00)
[2022-12-07] MEDS ORDERED: chlordiazePOXIDE HCL 10 MG CAPSULE PO SCH (05:00)
[2022-12-08] MEDS ORDERED: chlordiazePOXIDE HCL 10 MG CAPSULE PO ONE (05:00)
== END 2022-12-04 10:00 | disposition home or self-care (01) | DRG 774 ==
LOC: YASAS 04:59 → Y6N 08:56
PROVIDERS: ADMIT Allergy & Immunology; ATTEND Surgery
PROC: HZ2ZZZZ Detoxification Services for Substance Abuse Treatment (ICD-10-PCS; principal; 2022-12-04)
DX: F10.230 Alcohol dependence with withdrawal, uncomplicated (principal); F14.20 Cocaine dependence, uncomplicated; F17.210 Nicotine dependence, cigarettes, uncomplicated; F41.9 Anxiety disorder, unspecified; F32.A Depression, unspecified; I10 Essential (primary) hypertension; J45.20 Mild intermittent asthma, uncomplicated; Z56.0 Unemployment, unspecified; Z59.00 Homelessness unspecified
CPT/HCPCS: C9803-CS; U0003; U0005

== ENCOUNTER 2023-02-20 07:59 | Inpatient (IN) | payer OTHER ==
[2023-02-20 08:21] VITALS: BMI 30.5
[2023-02-20] MEDS ORDERED: IBUPROFEN 600 MG TABLET (FP) PO PRN (09:13)
[2023-02-20] MEDS ORDERED: chlordiazePOXIDE HCL 25 MG CAPSULE PO PRN (09:13)
[2023-02-20] MEDS ORDERED: NALOXONE HCL 0.4 MG/ML VIAL IM PRN (09:13)
[2023-02-20] MEDS ORDERED: MAG HYDROX/AL HYDROX/SIMETH 30 ML UNIT-DOSE CUP PO PRN (09:13)
[2023-02-20] MEDS ORDERED: BENZOCAINE/MENTHOL (CHLORASEPTIC ) LOZENGE MM PRN (09:13)
[2023-02-20] MEDS ORDERED: ACETAMINOPHEN 325 MG TABLET (FP) PO PRN (09:13)
[2023-02-20] MEDS ORDERED: DICYCLOMINE HCL 10 MG CAPSULE PO PRN (09:13)
[2023-02-20] MEDS ORDERED: MAGNESIUM HYDROX 2400MG/30ML ORAL SUSPENSION 30 ML CUP PO PRN (09:13)
[2023-02-20] MEDS ORDERED: guaiFENesin 600 MG TABLET.ER (FP) PO PRN (09:13)
[2023-02-20] MEDS ORDERED: NALOXONE HCL (KLOXXADO) 8 MG SPRAY NS PRN (09:13)
[2023-02-20] MEDS ORDERED: POLYETHYLENE GLYCOL (HEALTHYLAX) 3350 17 GM PACKET PO PRN (09:13)
[2023-02-20] MEDS ORDERED: BISMUTH SUBSALICYLATE 524 MG/30 ML PO PRN (09:13)
[2023-02-20] MEDS ORDERED: BENZONATATE 200 MG CAPSULE PO PRN (09:13)
[2023-02-20] MEDS ORDERED: LOPERAMIDE HCL 2 MG CAPSULE PO PRN (09:13)
[2023-02-20] MEDS ORDERED: METHOCARBAMOL 500 MG TABLET PO PRN (09:13)
[2023-02-20] MEDS ORDERED: NICOTINE 10 MG CARTRIDGE (INHALER) IH PRN (09:13)
[2023-02-20] MEDS ORDERED: ONDANSETRON *ODT* 4 MG TABLET SL PRN (09:13)
[2023-02-20] MEDS ORDERED: IBUPROFEN 400 MG TABLET (FP) PO PRN (09:13)
[2023-02-20] MEDS ORDERED: hydrOXYzine PAMOATE 25 MG CAPSULE (FP) PO PRN (09:13)
[2023-02-20] MEDS ORDERED: ALBUTEROL SO4 HFA INHALER IH PRN (09:22)
[2023-02-20] MEDS: chlordiazePOXIDE HCL 25 MG CAPSULE PO SCH ×3 (10:45→22:19)
[2023-02-20] MEDS: PRENATAL VITAMINS W/ FOLIC ACID TABLET (FP) PO SCH (11:02)
[2023-02-20] MEDS: HYDROCHLOROTHIAZIDE 12.5 MG CAPSULE (FP) PO SCH (11:02)
[2023-02-20] MEDS ORDERED: MELATONIN 5 MG TABLETS PO SCH (22:00)
[2023-02-20] MEDS: THIAMINE HCL 100 MG TABLET (FP) PO SCH (22:18)
[2023-02-21] MEDS: chlordiazePOXIDE HCL 25 MG CAPSULE PO SCH ×4 (06:03→22:23)
[2023-02-21] MEDS: PRENATAL VITAMINS W/ FOLIC ACID TABLET (FP) PO SCH (10:35)
[2023-02-21] MEDS: HYDROCHLOROTHIAZIDE 12.5 MG CAPSULE (FP) PO SCH (10:35)
[2023-02-21] MEDS ORDERED: cloNIDine HCL 0.1 MG TABLET PO ONE (12:40)
[2023-02-21] MEDS ORDERED: NICOTINE POLACRILEX 2 MG GUM BC PRN (17:58)
[2023-02-21] MEDS ORDERED: MIRTAZAPINE 15 MG TABLET (FP) PO PRN (22:00)
[2023-02-21] MEDS: THIAMINE HCL 100 MG TABLET (FP) PO SCH (22:23)
[2023-02-22] MEDS: chlordiazePOXIDE HCL 25 MG CAPSULE PO SCH ×2 (05:59→10:07)
[2023-02-22 09:17] VITALS: BP 138/96; PULSE 83; RESP 17; TEMP 96.9
[2023-02-22] MEDS ORDERED: amLODIPine BESYLATE 5 MG TABLET (FP) PO SCH (10:00)
[2023-02-22] MEDS: HYDROCHLOROTHIAZIDE 12.5 MG CAPSULE (FP) PO SCH (10:06)
[2023-02-22] MEDS: PRENATAL VITAMINS W/ FOLIC ACID TABLET (FP) PO SCH (10:06)
[2023-02-22 11:45] LABS: HEMATOCRIT 43.7 % (35.4-49); HEMOGLOBIN 15.1 GM/dL (11.7-16.9); MCH 29.8 pg (25.7-33.7); MCHC 34.4 g/dl (32.0-35.9); MEAN CELL VOLUME 86.5 fl (80-96); MEAN PLT VOLUME 7.3 fl (7.5-11.1); PLATELET COUNT 324 10^3/uL (134-434); RBC 5.06 M/mm3 (4.00-5.60); RDW 13.5 % (11.9-15.9)
[2023-02-22 11:56] LABS: POTASSIUM 3.9 mmol/L (3.5-5.1)
[2023-02-22 12:05] LABS: ALBUMIN 3.4 g/dl (3.4-5.0); BLOOD UREA NITROGEN 11.1 mg/dL (7-18); CALCIUM 9.2 mg/dL (8.5-10.1)
[2023-02-22 12:08] LABS: BILIRUBIN,TOTAL 0.2 mg/dL (0.2-1); CREATININE 0.8 mg/dL (0.55-1.3); TOT PROT 6.4 g/dl (6.4-8.2)
[2023-02-23] MEDS ORDERED: chlordiazePOXIDE HCL 10 MG CAPSULE PO PRN
[2023-02-23] MEDS ORDERED: chlordiazePOXIDE HCL 10 MG CAPSULE PO SCH (05:00)
[2023-02-24] MEDS ORDERED: chlordiazePOXIDE HCL 10 MG CAPSULE PO SCH (05:00)
[2023-02-25] MEDS ORDERED: chlordiazePOXIDE HCL 10 MG CAPSULE PO ONE (05:00)
== END 2023-02-22 11:10 | disposition home or self-care (01) | DRG 774 ==
LOC: YASAS 07:59 → Y6N 09:53
PROVIDERS: ADMIT Allergy & Immunology; ATTEND Surgery
PROC: HZ2ZZZZ Detoxification Services for Substance Abuse Treatment (ICD-10-PCS; principal; 2023-02-20)
DX: F10.230 Alcohol dependence with withdrawal, uncomplicated (principal); F14.20 Cocaine dependence, uncomplicated; F12.20 Cannabis dependence, uncomplicated; F17.210 Nicotine dependence, cigarettes, uncomplicated; F19.282 Other psychoactive substance dependence with psychoactive substance-induced sleep disorder; F19.24 Other psychoactive substance dependence with psychoactive substance-induced mood disorder; J45.20 Mild intermittent asthma, uncomplicated; Z59.00 Homelessness unspecified; Z56.0 Unemployment, unspecified
CPT/HCPCS: 36415; 80053; 85027; 86780; 87811; C9803-CS; U0003; U0005

== ENCOUNTER 2023-02-25 11:08 | Inpatient (IN) | payer OTHER ==
[2023-02-25 11:34] VITALS: BMI 28.1
[2023-02-25] MEDS ORDERED: ONDANSETRON *ODT* 4 MG TABLET SL PRN (11:46)
[2023-02-25] MEDS ORDERED: hydrOXYzine PAMOATE 25 MG CAPSULE (FP) PO PRN (11:46)
[2023-02-25] MEDS ORDERED: ACETAMINOPHEN 325 MG TABLET (FP) PO PRN (11:46)
[2023-02-25] MEDS ORDERED: POLYETHYLENE GLYCOL (HEALTHYLAX) 3350 17 GM PACKET PO PRN (11:46)
[2023-02-25] MEDS ORDERED: guaiFENesin 600 MG TABLET.ER (FP) PO PRN (11:46)
[2023-02-25] MEDS ORDERED: LOPERAMIDE HCL 2 MG CAPSULE PO PRN (11:46)
[2023-02-25] MEDS ORDERED: NICOTINE 10 MG CARTRIDGE (INHALER) IH PRN (11:46)
[2023-02-25] MEDS ORDERED: MAGNESIUM HYDROX 2400MG/30ML ORAL SUSPENSION 30 ML CUP PO PRN (11:46)
[2023-02-25] MEDS ORDERED: DICYCLOMINE HCL 10 MG CAPSULE PO PRN (11:46)
[2023-02-25] MEDS ORDERED: NALOXONE HCL (KLOXXADO) 8 MG SPRAY NS PRN (11:46)
[2023-02-25] MEDS ORDERED: MAG HYDROX/AL HYDROX/SIMETH 30 ML UNIT-DOSE CUP PO PRN (11:46)
[2023-02-25] MEDS ORDERED: IBUPROFEN 600 MG TABLET (FP) PO PRN (11:46)
[2023-02-25] MEDS ORDERED: NALOXONE HCL 0.4 MG/ML VIAL IM PRN (11:46)
[2023-02-25] MEDS ORDERED: chlordiazePOXIDE HCL 25 MG CAPSULE PO PRN (11:46)
[2023-02-25] MEDS ORDERED: BENZOCAINE/MENTHOL (CHLORASEPTIC ) LOZENGE MM PRN (11:46)
[2023-02-25] MEDS ORDERED: IBUPROFEN 400 MG TABLET (FP) PO PRN (11:46)
[2023-02-25] MEDS ORDERED: BENZONATATE 200 MG CAPSULE PO PRN (11:46)
[2023-02-25] MEDS ORDERED: BISMUTH SUBSALICYLATE 524 MG/30 ML PO PRN (11:46)
[2023-02-25] MEDS ORDERED: METHOCARBAMOL 500 MG TABLET PO PRN (11:46)
[2023-02-25] MEDS ORDERED: ALBUTEROL SO4 HFA INHALER IH PRN (11:58)
[2023-02-25] MEDS ORDERED: PRENATAL VITAMINS W/ FOLIC ACID TABLET (FP) PO ONE (12:29)
[2023-02-25] MEDS ORDERED: HYDROCHLOROTHIAZIDE 12.5 MG CAPSULE (FP) ONE (12:29)
[2023-02-25] MEDS ORDERED: chlordiazePOXIDE HCL 25 MG CAPSULE ONE (12:29)
[2023-02-25] MEDS: HYDROCHLOROTHIAZIDE 12.5 MG CAPSULE (FP) PO SCH (12:32)
[2023-02-25] MEDS: PRENATAL VITAMINS W/ FOLIC ACID TABLET (FP) PO SCH (12:32)
[2023-02-25] MEDS: chlordiazePOXIDE HCL 25 MG CAPSULE PO SCH ×3 (12:34→22:18)
[2023-02-25 16:42] LABS: ALBUMIN 3.7 g/dl (3.4-5.0); BLOOD UREA NITROGEN 13.5 mg/dL (7-18); CALCIUM 9.1 mg/dL (8.5-10.1)
[2023-02-25 16:45] LABS: BILIRUBIN,TOTAL 0.6 mg/dL (0.2-1); CREATININE 1.2 mg/dL (0.55-1.3); TOT PROT 6.9 g/dl (6.4-8.2)
[2023-02-25 16:57] LABS: HEMATOCRIT 44.1 % (35.4-49); MCH 29.3 pg (25.7-33.7); MCHC 34.1 g/dl (32.0-35.9); MEAN CELL VOLUME 85.8 fl (80-96); MEAN PLT VOLUME 7.4 fl (7.5-11.1); PLATELET COUNT 382 10^3/uL (134-434); RBC 5.13 M/mm3 (4.00-5.60); RDW 13.1 % (11.9-15.9); WHITE BLOOD COUNT 11.1 K/mm3 (4.0-10.0)
[2023-02-25] MEDS ORDERED: THIAMINE HCL 100 MG TABLET (FP) PO SCH (22:00)
[2023-02-25] MEDS ORDERED: MIRTAZAPINE 15 MG TABLET (FP) PO SCH (22:00)
[2023-02-25] MEDS ORDERED: MELATONIN 5 MG TABLETS PO SCH (22:00)
[2023-02-26] MEDS: chlordiazePOXIDE HCL 25 MG CAPSULE PO SCH ×3 (05:14→17:57)
[2023-02-26] MEDS: PRENATAL VITAMINS W/ FOLIC ACID TABLET (FP) PO SCH (10:11)
[2023-02-26] MEDS: HYDROCHLOROTHIAZIDE 12.5 MG CAPSULE (FP) PO SCH (10:11)
[2023-02-26] MEDS: NICOTINE POLACRILEX 4 MG GUM BUC PRN ×2 (10:13→19:25)
[2023-02-26 17:15] VITALS: TEMP 97.8
[2023-02-26 21:13] VITALS: BP 138/99; PULSE 105; RESP 17
[2023-02-27] MEDS ORDERED: chlordiazePOXIDE HCL 25 MG CAPSULE PO SCH (05:00)
[2023-02-28] MEDS ORDERED: chlordiazePOXIDE HCL 10 MG CAPSULE PO PRN
[2023-02-28] MEDS ORDERED: chlordiazePOXIDE HCL 10 MG CAPSULE PO SCH (05:00)
[2023-03-01] MEDS ORDERED: chlordiazePOXIDE HCL 10 MG CAPSULE PO SCH (05:00)
[2023-03-02] MEDS ORDERED: chlordiazePOXIDE HCL 10 MG CAPSULE PO ONE (05:00)
== END 2023-02-26 20:18 | disposition left against medical advice (07) | DRG 770 ==
LOC: YASAS 11:08 → Y3N 11:52 → Y6N 12:20
PROVIDERS: ADMIT Allergy & Immunology; ATTEND Surgery
PROC: HZ2ZZZZ Detoxification Services for Substance Abuse Treatment (ICD-10-PCS; principal; 2023-02-25)
DX: F10.230 Alcohol dependence with withdrawal, uncomplicated (principal); F14.20 Cocaine dependence, uncomplicated; F12.10 Cannabis abuse, uncomplicated; F17.210 Nicotine dependence, cigarettes, uncomplicated; F19.282 Other psychoactive substance dependence with psychoactive substance-induced sleep disorder; I10 Essential (primary) hypertension; J45.20 Mild intermittent asthma, uncomplicated; Z59.01 Sheltered homelessness
CPT/HCPCS: 36415; 80053; 82140; 85027; 86780; 87811; C9803-CS; U0003; U0005

== ENCOUNTER 2023-03-11 11:16 | Inpatient (IN) | payer OTHER ==
[2023-03-11 11:39] VITALS: BMI 29.4
[2023-03-11] MEDS ORDERED: NALOXONE HCL (KLOXXADO) 8 MG SPRAY NS PRN (13:08)
[2023-03-11] MEDS ORDERED: ACETAMINOPHEN 325 MG TABLET (FP) PO PRN (13:08)
[2023-03-11] MEDS ORDERED: BENZOCAINE/MENTHOL (CHLORASEPTIC ) LOZENGE MM PRN (13:08)
[2023-03-11] MEDS ORDERED: POLYETHYLENE GLYCOL (HEALTHYLAX) 3350 17 GM PACKET PO PRN (13:08)
[2023-03-11] MEDS ORDERED: MAG HYDROX/AL HYDROX/SIMETH 30 ML UNIT-DOSE CUP PO PRN (13:08)
[2023-03-11] MEDS ORDERED: IBUPROFEN 400 MG TABLET (FP) PO PRN (13:08)
[2023-03-11] MEDS ORDERED: COLLOIDAL OATMEAL 1 BAR EACH TP PRN (13:08)
[2023-03-11] MEDS ORDERED: MAGNESIUM HYDROX 2400MG/30ML ORAL SUSPENSION 30 ML CUP PO PRN (13:08)
[2023-03-11] MEDS ORDERED: LOPERAMIDE HCL 2 MG CAPSULE PO PRN (13:08)
[2023-03-11] MEDS ORDERED: NALOXONE HCL 0.4 MG/ML VIAL IM PRN (13:08)
[2023-03-11] MEDS ORDERED: AMMONIUM LACTATE 12% LOTION 225 GM BOTTLE TP PRN (13:08)
[2023-03-11] MEDS ORDERED: BENZONATATE 200 MG CAPSULE PO PRN (13:08)
[2023-03-11] MEDS ORDERED: guaiFENesin 600 MG TABLET.ER (FP) PO PRN (13:08)
[2023-03-11] MEDS ORDERED: ALBUTEROL SO4 HFA INHALER IH PRN (13:13)
[2023-03-11] MEDS: PRENATAL VITAMINS W/ FOLIC ACID TABLET (FP) PO SCH (15:13)
[2023-03-11 16:15] LABS: POTASSIUM 4.2 mmol/L (3.5-5.1)
[2023-03-11 16:18] LABS: CALCIUM 9.2 mg/dL (8.5-10.1); HEMATOCRIT 43.5 % (35.4-49); HEMOGLOBIN 14.9 GM/dL (11.7-16.9); MCH 29.6 pg (25.7-33.7); MCHC 34.2 g/dl (32.0-35.9); MEAN CELL VOLUME 86.5 fl (80-96); MEAN PLT VOLUME 7.5 fl (7.5-11.1); PLATELET COUNT 372 10^3/uL (134-434); RBC 5.02 M/mm3 (4.00-5.60); RDW 13.4 % (11.9-15.9); WHITE BLOOD COUNT 9.2 K/mm3 (4.0-10.0)
[2023-03-11 16:19] LABS: ALBUMIN 3.4 g/dl (3.4-5.0)
[2023-03-11 16:23] LABS: TOT PROT 6.6 g/dl (6.4-8.2)
[2023-03-11 16:24] LABS: BILIRUBIN,TOTAL 0.3 mg/dL (0.2-1)
[2023-03-11 16:27] LABS: BLOOD UREA NITROGEN 8.6 mg/dL (7-18)
[2023-03-11 16:43] LABS: SYPHILIS W/ RPR CONF NON-REACTIVE (NONREACTIVE)
[2023-03-11] MEDS: THIAMINE HCL 100 MG TABLET (FP) PO SCH (21:06)
[2023-03-11] MEDS: hydrOXYzine PAMOATE 25 MG CAPSULE (FP) PO PRN (21:06)
[2023-03-11] MEDS ORDERED: MELATONIN 5 MG TABLETS PO SCH (22:00)
[2023-03-12] MEDS: PRENATAL VITAMINS W/ FOLIC ACID TABLET (FP) PO SCH (10:58)
[2023-03-12] MEDS: NICOTINE 14 MG/24 HOURS TOPICAL PATCH TD SCH (10:58)
[2023-03-12] MEDS: HYDROCHLOROTHIAZIDE 12.5 MG CAPSULE (FP) PO SCH (10:58)
[2023-03-12] MEDS: LACTULOSE 20 GM/30 ML UDC (FOR ORAL USE ONLY) PO SCH ×2 (14:44→21:26)
[2023-03-12] MEDS: MIRTAZAPINE 15 MG TABLET (FP) PO SCH (21:25)
[2023-03-12] MEDS: THIAMINE HCL 100 MG TABLET (FP) PO SCH (21:25)
[2023-03-13 02:07] LABS: PH,URINE 8.5 (5.0-8.0); URINE APPEARANCE CLEAR; URINE BILIRUBIN NEGATIVE (NEGATIVE); URINE COLOR YELLOW; URINE GLUCOSE (UA) NEGATIVE (NEGATIVE); URINE KETONE NEGATIVE (NEGATIVE); URINE LEUK ESTERASE NEGATIVE (NEGATIVE); URINE NITRITE NEGATIVE (NEGATIVE); URINE PROTEIN NEGATIVE (NEGATIVE); URINE UROBILINOGEN 0.2 mg/dL (0.2-1.0)
[2023-03-13] MEDS: LACTULOSE 20 GM/30 ML UDC (FOR ORAL USE ONLY) PO SCH ×3 (06:48→21:25)
[2023-03-13] MEDS: HYDROCHLOROTHIAZIDE 12.5 MG CAPSULE (FP) PO SCH (09:45)
[2023-03-13] MEDS: PRENATAL VITAMINS W/ FOLIC ACID TABLET (FP) PO SCH (09:45)
[2023-03-13] MEDS: NICOTINE 14 MG/24 HOURS TOPICAL PATCH TD SCH (09:45)
[2023-03-13] MEDS: NICOTINE 10 MG CARTRIDGE (INHALER) IH PRN ×2 (13:00→17:55)
[2023-03-13] MEDS: THIAMINE HCL 100 MG TABLET (FP) PO SCH (21:26)
[2023-03-13] MEDS: MIRTAZAPINE 15 MG TABLET (FP) PO SCH (21:26)
[2023-03-13] MEDS: hydrOXYzine PAMOATE 25 MG CAPSULE (FP) PO PRN (21:26)
[2023-03-14] MEDS: LACTULOSE 20 GM/30 ML UDC (FOR ORAL USE ONLY) PO SCH ×3 (07:13→21:26)
[2023-03-14] MEDS: PRENATAL VITAMINS W/ FOLIC ACID TABLET (FP) PO SCH (09:05)
[2023-03-14] MEDS: HYDROCHLOROTHIAZIDE 12.5 MG CAPSULE (FP) PO SCH (09:05)
[2023-03-14] MEDS: hydrOXYzine PAMOATE 25 MG CAPSULE (FP) PO PRN ×2 (09:05→21:25)
[2023-03-14] MEDS: NICOTINE 14 MG/24 HOURS TOPICAL PATCH TD SCH (09:05)
[2023-03-14] MEDS: NICOTINE 10 MG CARTRIDGE (INHALER) IH PRN ×2 (13:34→23:52)
[2023-03-14] MEDS: IBUPROFEN 600 MG TABLET (FP) PO PRN (15:48)
[2023-03-14] MEDS: MIRTAZAPINE 15 MG TABLET (FP) PO SCH (21:25)
[2023-03-14] MEDS: THIAMINE HCL 100 MG TABLET (FP) PO SCH (21:25)
[2023-03-15] MEDS: LACTULOSE 20 GM/30 ML UDC (FOR ORAL USE ONLY) PO SCH ×3 (07:20→21:37)
[2023-03-15] MEDS: PRENATAL VITAMINS W/ FOLIC ACID TABLET (FP) PO SCH (09:51)
[2023-03-15] MEDS: NICOTINE 14 MG/24 HOURS TOPICAL PATCH TD SCH (09:51)
[2023-03-15] MEDS: HYDROCHLOROTHIAZIDE 12.5 MG CAPSULE (FP) PO SCH (09:52)
[2023-03-15] MEDS: IBUPROFEN 600 MG TABLET (FP) PO PRN ×2 (14:24→19:51)
[2023-03-15] MEDS: NICOTINE 10 MG CARTRIDGE (INHALER) IH PRN (14:25)
[2023-03-15] MEDS: propRANOLol HCL 10 MG TABLET PO PRN (15:05)
[2023-03-15] MEDS: hydrOXYzine PAMOATE 25 MG CAPSULE (FP) PO PRN (19:52)
[2023-03-15] MEDS ORDERED: hydrOXYzine PAMOATE 25 MG CAPSULE (FP) PO ONE (20:00)
[2023-03-15] MEDS: MIRTAZAPINE 15 MG TABLET (FP) PO SCH (21:38)
[2023-03-15] MEDS: THIAMINE HCL 100 MG TABLET (FP) PO SCH (21:38)
[2023-03-15 22:34] VITALS: RESP 18
[2023-03-16] MEDS: LACTULOSE 20 GM/30 ML UDC (FOR ORAL USE ONLY) PO SCH ×3 (07:26→21:28)
[2023-03-16] MEDS: NICOTINE 10 MG CARTRIDGE (INHALER) IH PRN ×3 (09:41→21:29)
[2023-03-16] MEDS: NICOTINE 14 MG/24 HOURS TOPICAL PATCH TD SCH (09:41)
[2023-03-16] MEDS: HYDROCHLOROTHIAZIDE 12.5 MG CAPSULE (FP) PO SCH (09:41)
[2023-03-16] MEDS: PRENATAL VITAMINS W/ FOLIC ACID TABLET (FP) PO SCH (09:42)
[2023-03-16] MEDS: propRANOLol HCL 10 MG TABLET PO PRN (09:43)
[2023-03-16] MEDS: MIRTAZAPINE 15 MG TABLET (FP) PO SCH (21:27)
[2023-03-16] MEDS: THIAMINE HCL 100 MG TABLET (FP) PO SCH (21:28)
[2023-03-17 07:26] VITALS: TEMP 97.9
[2023-03-17] MEDS: LACTULOSE 20 GM/30 ML UDC (FOR ORAL USE ONLY) PO SCH (07:40)
[2023-03-17 09:11] VITALS: BP 158/99; PULSE 67
[2023-03-17] MEDS: NICOTINE 10 MG CARTRIDGE (INHALER) IH PRN (09:20)
[2023-03-17] MEDS: propRANOLol HCL 10 MG TABLET PO PRN (09:22)
[2023-03-17] MEDS: PRENATAL VITAMINS W/ FOLIC ACID TABLET (FP) PO SCH (09:22)
[2023-03-17] MEDS: HYDROCHLOROTHIAZIDE 12.5 MG CAPSULE (FP) PO SCH (09:22)
[2023-03-17] MEDS: NICOTINE 14 MG/24 HOURS TOPICAL PATCH TD SCH (09:23)
== END 2023-03-17 10:05 | disposition home or self-care (01) | DRG 772 ==
LOC: YASAS 11:16 → Y5N 14:15
PROVIDERS: ADMIT Allergy & Immunology; ATTEND Psychiatry & Neurology Pain Medicine
PROC: HZ42ZZZ Group Counseling for Substance Abuse Treatment, Cognitive-Behavioral (ICD-10-PCS; principal; 2023-03-11)
DX: F10.20 Alcohol dependence, uncomplicated (principal); F14.20 Cocaine dependence, uncomplicated; F12.20 Cannabis dependence, uncomplicated; F19.282 Other psychoactive substance dependence with psychoactive substance-induced sleep disorder; F19.24 Other psychoactive substance dependence with psychoactive substance-induced mood disorder; F41.9 Anxiety disorder, unspecified; F32.A Depression, unspecified; I10 Essential (primary) hypertension; J45.20 Mild intermittent asthma, uncomplicated; F17.210 Nicotine dependence, cigarettes, uncomplicated; R79.89 Other specified abnormal findings of blood chemistry
CPT/HCPCS: 36415; 80053; 81003; 82140; 85027; 86780; 86803; 87811; 93005; 93010; C9803-CS; U0003; U0005

== ENCOUNTER 2023-06-22 22:14 | Inpatient (IN) | payer OTHER ==
[2023-06-22 23:41] VITALS: BMI 27.6
[2023-06-23] MEDS ORDERED: LOPERAMIDE HCL 2 MG CAPSULE PO PRN (05:21)
[2023-06-23] MEDS ORDERED: hydrOXYzine PAMOATE 25 MG CAPSULE (FP) PO PRN (05:21)
[2023-06-23] MEDS ORDERED: MAG HYDROX/AL HYDROX/SIMETH 30 ML UNIT-DOSE CUP PO PRN (05:21)
[2023-06-23] MEDS ORDERED: ACETAMINOPHEN 325 MG TABLET (FP) PO PRN (05:21)
[2023-06-23] MEDS ORDERED: POLYETHYLENE GLYCOL (HEALTHYLAX) 3350 17 GM PACKET PO PRN (05:21)
[2023-06-23] MEDS ORDERED: DICYCLOMINE HCL 10 MG CAPSULE PO PRN (05:21)
[2023-06-23] MEDS ORDERED: BENZOCAINE/MENTHOL (CHLORASEPTIC ) LOZENGE MM PRN (05:21)
[2023-06-23] MEDS ORDERED: NALOXONE HCL 0.4 MG/ML VIAL IM PRN (05:21)
[2023-06-23] MEDS ORDERED: ONDANSETRON *ODT* 4 MG TABLET SL PRN (05:21)
[2023-06-23] MEDS ORDERED: METHOCARBAMOL 500 MG TABLET PO PRN (05:21)
[2023-06-23] MEDS ORDERED: BENZONATATE 200 MG CAPSULE PO PRN (05:21)
[2023-06-23] MEDS ORDERED: IBUPROFEN 400 MG TABLET (FP) PO PRN (05:21)
[2023-06-23] MEDS ORDERED: MAGNESIUM HYDROX 2400MG/30ML ORAL SUSPENSION 30 ML CUP PO PRN (05:21)
[2023-06-23] MEDS ORDERED: BISMUTH SUBSALICYLATE 524 MG/30 ML PO PRN (05:21)
[2023-06-23] MEDS ORDERED: IBUPROFEN 600 MG TABLET (FP) PO PRN (05:21)
[2023-06-23] MEDS ORDERED: NALOXONE HCL (KLOXXADO) 8 MG SPRAY NS PRN (05:21)
[2023-06-23] MEDS ORDERED: guaiFENesin 600 MG TABLET.ER (FP) PO PRN (05:21)
[2023-06-23] MEDS ORDERED: LORazepam 1 MG TABLET PO PRN (08:52)
[2023-06-23 10:33] LABS: HEMATOCRIT 44.9 % (35.4-49); HEMOGLOBIN 15.4 GM/dL (11.7-16.9); MCH 29.6 pg (25.7-33.7); MCHC 34.4 g/dl (32.0-35.9); MEAN CELL VOLUME 86.2 fl (80-96); MEAN PLT VOLUME 7.3 fl (7.5-11.1); PLATELET COUNT 359 10^3/uL (134-434); RBC 5.21 M/mm3 (4.00-5.60); RDW 14.4 % (11.9-15.9)
[2023-06-23 10:41] LABS: POTASSIUM 4.2 mmol/L (3.5-5.1)
[2023-06-23] MEDS: PRENATAL VITAMINS W/ FOLIC ACID TABLET (FP) PO SCH (11:19)
[2023-06-23] MEDS: NICOTINE 14 MG/24 HOURS TOPICAL PATCH TD SCH (11:19)
[2023-06-23] MEDS: LORazepam 2 MG TABLET PO SCH ×3 (11:20→22:29)
[2023-06-23 11:27] LABS: CALCIUM 9.2 mg/dL (8.5-10.1)
[2023-06-23 11:28] LABS: ALBUMIN 4.2 g/dl (3.4-5.0); BLOOD UREA NITROGEN 24.2 mg/dL (7-18)
[2023-06-23 11:31] LABS: CREATININE 1.2 mg/dL (0.55-1.3)
[2023-06-23 11:32] LABS: BILIRUBIN,TOTAL 0.7 mg/dL (0.2-1); TOT PROT 7.7 g/dl (6.4-8.2)
[2023-06-23] MEDS: MELATONIN 5 MG TABLETS PO SCH (22:29)
[2023-06-23] MEDS: THIAMINE HCL 100 MG TABLET (FP) PO SCH (22:29)
[2023-06-24] MEDS: LORazepam 2 MG TABLET PO SCH ×4 (05:40→22:14)
[2023-06-24] MEDS: NICOTINE 14 MG/24 HOURS TOPICAL PATCH TD SCH (10:59)
[2023-06-24] MEDS: PRENATAL VITAMINS W/ FOLIC ACID TABLET (FP) PO SCH (10:59)
[2023-06-24] MEDS: NICOTINE POLACRILEX 2 MG GUM BUC PRN (17:39)
[2023-06-24] MEDS: MELATONIN 5 MG TABLETS PO SCH (22:13)
[2023-06-24] MEDS: THIAMINE HCL 100 MG TABLET (FP) PO SCH (22:14)
[2023-06-25] MEDS: NICOTINE POLACRILEX 2 MG GUM BUC PRN ×3 (04:23→22:18)
[2023-06-25] MEDS: LORazepam 1 MG TABLET PO SCH ×4 (05:23→22:15)
[2023-06-25] MEDS ORDERED: ALBUTEROL SO4 HFA INHALER IH PRN (08:27)
[2023-06-25] MEDS: PRENATAL VITAMINS W/ FOLIC ACID TABLET (FP) PO SCH (11:12)
[2023-06-25] MEDS: HYDROCHLOROTHIAZIDE 12.5 MG CAPSULE (FP) PO SCH (11:12)
[2023-06-25] MEDS: NICOTINE 14 MG/24 HOURS TOPICAL PATCH TD SCH (11:13)
[2023-06-25] MEDS: THIAMINE HCL 100 MG TABLET (FP) PO SCH (22:15)
[2023-06-25] MEDS: MELATONIN 5 MG TABLETS PO SCH (22:16)
[2023-06-26] MEDS: LORazepam 0.5 MG TABLET PO SCH ×4 (05:58→22:09)
[2023-06-26] MEDS: NICOTINE POLACRILEX 2 MG GUM BUC PRN ×2 (06:25→12:14)
[2023-06-26] MEDS: PRENATAL VITAMINS W/ FOLIC ACID TABLET (FP) PO SCH (10:40)
[2023-06-26] MEDS: HYDROCHLOROTHIAZIDE 12.5 MG CAPSULE (FP) PO SCH (10:40)
[2023-06-26] MEDS: NICOTINE 14 MG/24 HOURS TOPICAL PATCH TD SCH (10:41)
[2023-06-26] MEDS: THIAMINE HCL 100 MG TABLET (FP) PO SCH (22:09)
[2023-06-26] MEDS: MELATONIN 5 MG TABLETS PO SCH (22:10)
[2023-06-27] MEDS ORDERED: LORazepam 0.5 MG TABLET PO ONE (05:00)
[2023-06-27 09:31] VITALS: PULSE 93; RESP 17
[2023-06-27] MEDS: PRENATAL VITAMINS W/ FOLIC ACID TABLET (FP) PO SCH (10:36)
[2023-06-27] MEDS: HYDROCHLOROTHIAZIDE 12.5 MG CAPSULE (FP) PO SCH (10:37)
[2023-06-27] MEDS: NICOTINE POLACRILEX 2 MG GUM BUC PRN (10:39)
[2023-06-27] MEDS: NICOTINE 14 MG/24 HOURS TOPICAL PATCH TD SCH (11:58)
[2023-06-27 13:12] VITALS: BP 149/77; TEMP 98.1
[2023-06-27] MEDS ORDERED: MIRTAZAPINE 15 MG TABLET (FP) PO SCH (22:00)
== END 2023-06-27 14:48 | disposition other institution (70) | DRG 775 ==
LOC: YASAS 22:14 → Y6N 06-23 06:25
PROVIDERS: ADMIT Allergy & Immunology; ATTEND Surgery
PROC: HZ2ZZZZ Detoxification Services for Substance Abuse Treatment (ICD-10-PCS; principal; 2023-06-23)
DX: F10.230 Alcohol dependence with withdrawal, uncomplicated (principal); F17.210 Nicotine dependence, cigarettes, uncomplicated; F19.282 Other psychoactive substance dependence with psychoactive substance-induced sleep disorder; F19.24 Other psychoactive substance dependence with psychoactive substance-induced mood disorder; F39 Unspecified mood [affective] disorder; F32.A Depression, unspecified; F41.9 Anxiety disorder, unspecified; I10 Essential (primary) hypertension; J45.909 Unspecified asthma, uncomplicated; Z56.0 Unemployment, unspecified; Z59.00 Homelessness unspecified
CPT/HCPCS: 36415; 80053; 83036; 84520; 85027; 86780; 87635; 87811; 93005; 93010

== ENCOUNTER 2023-06-27 14:58 | Inpatient (IN) | payer OTHER ==
[2023-06-27] MEDS ORDERED: MAG HYDROX/AL HYDROX/SIMETH 30 ML UNIT-DOSE CUP PO PRN (15:17)
[2023-06-27] MEDS ORDERED: COLLOIDAL OATMEAL 1 BAR EACH TP PRN (15:17)
[2023-06-27] MEDS ORDERED: NALOXONE HCL 0.4 MG/ML VIAL IVPUSH PRN (15:17)
[2023-06-27] MEDS ORDERED: IBUPROFEN 600 MG TABLET (FP) PO PRN (15:17)
[2023-06-27] MEDS ORDERED: guaiFENesin 600 MG TABLET.ER (FP) PO PRN (15:17)
[2023-06-27] MEDS ORDERED: POLYETHYLENE GLYCOL (HEALTHYLAX) 3350 17 GM PACKET PO PRN (15:17)
[2023-06-27] MEDS ORDERED: BENZOCAINE/MENTHOL (CHLORASEPTIC ) LOZENGE MM PRN (15:17)
[2023-06-27] MEDS ORDERED: MAGNESIUM HYDROX 2400MG/30ML ORAL SUSPENSION 30 ML CUP PO PRN (15:17)
[2023-06-27] MEDS ORDERED: IBUPROFEN 400 MG TABLET (FP) PO PRN (15:17)
[2023-06-27] MEDS ORDERED: AMMONIUM LACTATE 12% LOTION 225 GM BOTTLE TP PRN (15:17)
[2023-06-27] MEDS ORDERED: ACETAMINOPHEN 325 MG TABLET (FP) PO PRN (15:17)
[2023-06-27] MEDS ORDERED: METHOCARBAMOL 500 MG TABLET PO PRN (15:17)
[2023-06-27] MEDS ORDERED: NICOTINE 21 MG/24 HOURS TOPICAL PATCH TD PRN (15:17)
[2023-06-27] MEDS ORDERED: LOPERAMIDE HCL 2 MG CAPSULE PO PRN (15:17)
[2023-06-27] MEDS ORDERED: BENZONATATE 200 MG CAPSULE PO PRN (15:17)
[2023-06-27] MEDS ORDERED: NALOXONE HCL (KLOXXADO) 8 MG SPRAY NS PRN (15:17)
[2023-06-27] MEDS ORDERED: hydrOXYzine PAMOATE 25 MG CAPSULE (FP) PO PRN (15:17)
[2023-06-27] MEDS ORDERED: ALBUTEROL SO4 HFA INHALER IH PRN (15:19)
[2023-06-27] MEDS: MIRTAZAPINE 15 MG TABLET (FP) PO SCH (21:03)
[2023-06-27] MEDS: THIAMINE HCL 100 MG TABLET (FP) PO SCH (21:04)
[2023-06-27] MEDS: MELATONIN 5 MG TABLETS PO SCH (21:04)
[2023-06-27] MEDS: NICOTINE POLACRILEX 2 MG GUM BUC PRN (21:04)
[2023-06-28] MEDS: HYDROCHLOROTHIAZIDE 12.5 MG CAPSULE (FP) PO SCH (10:30)
[2023-06-28] MEDS: PRENATAL VITAMINS W/ FOLIC ACID TABLET (FP) PO SCH (10:30)
[2023-06-28] MEDS: MIRTAZAPINE 15 MG TABLET (FP) PO SCH (21:20)
[2023-06-28] MEDS: THIAMINE HCL 100 MG TABLET (FP) PO SCH (21:20)
[2023-06-28] MEDS: MELATONIN 5 MG TABLETS PO SCH (21:20)
[2023-06-29] MEDS: HYDROCHLOROTHIAZIDE 12.5 MG CAPSULE (FP) PO SCH (09:45)
[2023-06-29] MEDS: PRENATAL VITAMINS W/ FOLIC ACID TABLET (FP) PO SCH (09:45)
[2023-06-29] MEDS: MIRTAZAPINE 30 MG TABLET PO SCH (21:02)
[2023-06-29] MEDS: NICOTINE POLACRILEX 2 MG GUM BUC PRN (21:02)
[2023-06-29] MEDS: MELATONIN 5 MG TABLETS PO SCH (21:02)
[2023-06-29] MEDS: THIAMINE HCL 100 MG TABLET (FP) PO SCH (21:02)
[2023-06-30] MEDS: PRENATAL VITAMINS W/ FOLIC ACID TABLET (FP) PO SCH (11:41)
[2023-06-30] MEDS: HYDROCHLOROTHIAZIDE 12.5 MG CAPSULE (FP) PO SCH (11:41)
[2023-06-30] MEDS: THIAMINE HCL 100 MG TABLET (FP) PO SCH (21:42)
[2023-06-30] MEDS: MIRTAZAPINE 30 MG TABLET PO SCH (21:42)
[2023-06-30] MEDS: MELATONIN 5 MG TABLETS PO SCH (21:42)
[2023-07-01] MEDS: PRENATAL VITAMINS W/ FOLIC ACID TABLET (FP) PO SCH (10:05)
[2023-07-01] MEDS: HYDROCHLOROTHIAZIDE 12.5 MG CAPSULE (FP) PO SCH (10:05)
[2023-07-01] MEDS: NICOTINE POLACRILEX 2 MG GUM BUC PRN (21:23)
[2023-07-01] MEDS: MELATONIN 5 MG TABLETS PO SCH (21:23)
[2023-07-01] MEDS: MIRTAZAPINE 30 MG TABLET PO SCH (21:23)
[2023-07-01] MEDS: THIAMINE HCL 100 MG TABLET (FP) PO SCH (21:23)
[2023-07-02 06:48] VITALS: RESP 18; TEMP 97.5
[2023-07-02] MEDS: PRENATAL VITAMINS W/ FOLIC ACID TABLET (FP) PO SCH (09:52)
[2023-07-02] MEDS: HYDROCHLOROTHIAZIDE 12.5 MG CAPSULE (FP) PO SCH (09:53)
[2023-07-02] MEDS: NICOTINE POLACRILEX 2 MG GUM BUC PRN (09:53)
[2023-07-02 10:20] VITALS: BP 154/81; PULSE 101
== END 2023-07-02 15:29 | disposition left against medical advice (07) | DRG 770 ==
LOC: YASAS 14:58 → Y3W 15:00
PROVIDERS: ADMIT Allergy & Immunology; ATTEND Psychiatry & Neurology Pain Medicine
PROC: HZ42ZZZ Group Counseling for Substance Abuse Treatment, Cognitive-Behavioral (ICD-10-PCS; principal; 2023-06-27)
DX: F10.20 Alcohol dependence, uncomplicated (principal); F14.20 Cocaine dependence, uncomplicated; F17.210 Nicotine dependence, cigarettes, uncomplicated; F19.282 Other psychoactive substance dependence with psychoactive substance-induced sleep disorder; F32.A Depression, unspecified; F41.9 Anxiety disorder, unspecified; I10 Essential (primary) hypertension; J45.990 Exercise induced bronchospasm; Z59.00 Homelessness unspecified
CPT/HCPCS: 36415; 86803

== ENCOUNTER 2023-08-12 22:35 | Inpatient (IN) | payer OTHER ==
[2023-08-12 22:56] VITALS: BMI 27.6
[2023-08-12] MEDS ORDERED: NICOTINE POLACRILEX 2 MG GUM BUC PRN (23:28)
[2023-08-12] MEDS ORDERED: IBUPROFEN 400 MG TABLET (FP) PO PRN (23:28)
[2023-08-12] MEDS ORDERED: guaiFENesin 600 MG TABLET.ER (FP) PO PRN (23:28)
[2023-08-12] MEDS ORDERED: ONDANSETRON *ODT* 4 MG TABLET SL PRN (23:28)
[2023-08-12] MEDS ORDERED: POLYETHYLENE GLYCOL (HEALTHYLAX) 3350 17 GM PACKET PO PRN (23:28)
[2023-08-12] MEDS ORDERED: BISMUTH SUBSALICYLATE 524 MG/30 ML PO PRN (23:28)
[2023-08-12] MEDS ORDERED: BENZOCAINE/MENTHOL (CHLORASEPTIC ) LOZENGE MM PRN (23:28)
[2023-08-12] MEDS ORDERED: DICYCLOMINE HCL 10 MG CAPSULE PO PRN (23:28)
[2023-08-12] MEDS ORDERED: BENZONATATE 200 MG CAPSULE PO PRN (23:28)
[2023-08-12] MEDS ORDERED: MAGNESIUM HYDROX 2400MG/30ML ORAL SUSPENSION 30 ML CUP PO PRN (23:28)
[2023-08-12] MEDS ORDERED: NALOXONE HCL (KLOXXADO) 8 MG SPRAY NS PRN (23:28)
[2023-08-12] MEDS ORDERED: NALOXONE HCL 0.4 MG/ML VIAL IM PRN (23:28)
[2023-08-12] MEDS ORDERED: IBUPROFEN 600 MG TABLET (FP) PO PRN (23:28)
[2023-08-12] MEDS ORDERED: ACETAMINOPHEN 325 MG TABLET (FP) PO PRN (23:28)
[2023-08-12] MEDS ORDERED: MAG HYDROX/AL HYDROX/SIMETH 30 ML UNIT-DOSE CUP PO PRN (23:28)
[2023-08-12] MEDS ORDERED: LOPERAMIDE HCL 2 MG CAPSULE PO PRN (23:28)
[2023-08-13] MEDS ORDERED: LORazepam 1 MG TABLET PO PRN (08:56)
[2023-08-13] MEDS: hydrOXYzine PAMOATE 25 MG CAPSULE (FP) PO PRN (10:05)
[2023-08-13] MEDS: NICOTINE 14 MG/24 HOURS TOPICAL PATCH TD SCH (10:05)
[2023-08-13] MEDS: METHOCARBAMOL 500 MG TABLET PO PRN (10:05)
[2023-08-13] MEDS: PRENATAL VITAMINS W/ FOLIC ACID TABLET (FP) PO SCH (10:05)
[2023-08-13] MEDS: LORazepam 2 MG TABLET PO SCH ×3 (10:06→22:45)
[2023-08-13 10:48] LABS: HEMATOCRIT 43.6 % (35.4-49); MCHC 34.4 g/dl (32.0-35.9); MEAN PLT VOLUME 6.9 fl (7.5-11.1); PLATELET COUNT 354 10^3/uL (134-434); RBC 5.02 M/mm3 (4.00-5.60); RDW 13.1 % (11.9-15.9); WHITE BLOOD COUNT 8.2 K/mm3 (4.0-10.0)
[2023-08-13 11:53] LABS: ALK PHOS 87 U/L (45-117); ANION GAP 6 mmol/L (4-13); BILIRUBIN,TOTAL 0.4 mg/dL (0.2-1); BLOOD UREA NITROGEN 12.4 mg/dL (7-18); CALCIUM 8.3 mg/dL (8.5-10.1); CHLORIDE 106 mmol/L (98-107); CO2 29 mmol/L (21-32); CREATININE 0.9 mg/dL (0.55-1.3); GLUCOSE,RANDOM 106 mg/dL (74-106); POTASSIUM 3.8 mmol/L (3.5-5.1); SGOT/AST 25 U/L (15-37); SGPT/ALT 24 U/L (13-61); SODIUM 141 mmol/L (136-145); TOT PROT 5.7 g/dl (6.4-8.2)
[2023-08-13] MEDS: MELATONIN 5 MG TABLETS PO SCH (22:44)
[2023-08-13] MEDS: THIAMINE HCL 100 MG TABLET (FP) PO SCH (22:45)
[2023-08-13] MEDS: MIRTAZAPINE 30 MG TABLET PO SCH (22:45)
[2023-08-14] MEDS: LORazepam 2 MG TABLET PO SCH ×4 (05:20→22:25)
[2023-08-14] MEDS: PRENATAL VITAMINS W/ FOLIC ACID TABLET (FP) PO SCH (10:17)
[2023-08-14] MEDS: METHOCARBAMOL 500 MG TABLET PO PRN (10:17)
[2023-08-14] MEDS: NICOTINE 14 MG/24 HOURS TOPICAL PATCH TD SCH (10:17)
[2023-08-14] MEDS: hydrOXYzine PAMOATE 25 MG CAPSULE (FP) PO PRN (10:17)
[2023-08-14] MEDS: MIRTAZAPINE 30 MG TABLET PO SCH (22:25)
[2023-08-14] MEDS: MELATONIN 5 MG TABLETS PO SCH (22:26)
[2023-08-14] MEDS: THIAMINE HCL 100 MG TABLET (FP) PO SCH (22:26)
[2023-08-15] MEDS: LORazepam 1 MG TABLET PO SCH ×4 (05:51→22:10)
[2023-08-15] MEDS ORDERED: ALBUTEROL SO4 HFA INHALER IH PRN (08:33)
[2023-08-15] MEDS: PRENATAL VITAMINS W/ FOLIC ACID TABLET (FP) PO SCH (10:10)
[2023-08-15] MEDS: hydrOXYzine PAMOATE 25 MG CAPSULE (FP) PO PRN (10:10)
[2023-08-15] MEDS: NICOTINE 14 MG/24 HOURS TOPICAL PATCH TD SCH (10:10)
[2023-08-15] MEDS: METHOCARBAMOL 500 MG TABLET PO PRN (10:10)
[2023-08-15] MEDS: HYDROCHLOROTHIAZIDE 12.5 MG CAPSULE (FP) PO SCH (10:10)
[2023-08-15] MEDS: THIAMINE HCL 100 MG TABLET (FP) PO SCH (22:10)
[2023-08-15] MEDS: MIRTAZAPINE 30 MG TABLET PO SCH (22:10)
[2023-08-15] MEDS: MELATONIN 5 MG TABLETS PO SCH (22:11)
[2023-08-16] MEDS ORDERED: LORazepam 0.5 MG TABLET PO PRN
[2023-08-16] MEDS: LORazepam 0.5 MG TABLET PO SCH ×2 (05:21→10:11)
[2023-08-16 09:05] VITALS: RESP 18
[2023-08-16] MEDS: METHOCARBAMOL 500 MG TABLET PO PRN (10:10)
[2023-08-16] MEDS: PRENATAL VITAMINS W/ FOLIC ACID TABLET (FP) PO SCH (10:10)
[2023-08-16] MEDS: HYDROCHLOROTHIAZIDE 12.5 MG CAPSULE (FP) PO SCH (10:10)
[2023-08-16] MEDS: NICOTINE 14 MG/24 HOURS TOPICAL PATCH TD SCH (10:10)
[2023-08-16] MEDS: hydrOXYzine PAMOATE 25 MG CAPSULE (FP) PO PRN (10:10)
[2023-08-16 13:13] VITALS: BP 142/96; PULSE 108; TEMP 98
[2023-08-17] MEDS ORDERED: LORazepam 0.5 MG TABLET PO ONE (05:00)
== END 2023-08-16 13:22 | disposition home or self-care (01) | DRG 774 ==
LOC: YASAS 22:35 → Y6N 08-13 01:21
PROVIDERS: ADMIT Allergy & Immunology; ATTEND Allergy & Immunology
PROC: HZ2ZZZZ Detoxification Services for Substance Abuse Treatment (ICD-10-PCS; principal; 2023-08-13)
DX: F10.230 Alcohol dependence with withdrawal, uncomplicated (principal); F14.20 Cocaine dependence, uncomplicated; F12.20 Cannabis dependence, uncomplicated; F17.210 Nicotine dependence, cigarettes, uncomplicated; F19.282 Other psychoactive substance dependence with psychoactive substance-induced sleep disorder; F19.280 Other psychoactive substance dependence with psychoactive substance-induced anxiety disorder; F19.24 Other psychoactive substance dependence with psychoactive substance-induced mood disorder; F41.9 Anxiety disorder, unspecified; F32.A Depression, unspecified; I10 Essential (primary) hypertension; J45.909 Unspecified asthma, uncomplicated
CPT/HCPCS: 36415; 80053; 80307; 85027; 86780; 87635; 87811

== ENCOUNTER 2023-08-29 14:21 | Inpatient (IN) | payer OTHER ==
[2023-08-29 17:58] VITALS: BMI 26.6
[2023-08-29] MEDS ORDERED: propRANOLol HCL 10 MG TABLET PO PRN ×2 (18:06→19:16)
[2023-08-29] MEDS ORDERED: NICOTINE POLACRILEX 2 MG GUM BUC PRN (18:06)
[2023-08-29] MEDS ORDERED: ALBUTEROL SO4 HFA INHALER IH PRN (18:06)
[2023-08-29] MEDS ORDERED: IBUPROFEN 400 MG TABLET (FP) PO PRN (18:23)
[2023-08-29] MEDS ORDERED: BENZONATATE 200 MG CAPSULE PO PRN (18:23)
[2023-08-29] MEDS ORDERED: guaiFENesin 600 MG TABLET.ER (FP) PO PRN (18:23)
[2023-08-29] MEDS ORDERED: ONDANSETRON *ODT* 4 MG TABLET SL PRN (18:23)
[2023-08-29] MEDS ORDERED: POLYETHYLENE GLYCOL (HEALTHYLAX) 3350 17 GM PACKET PO PRN (18:23)
[2023-08-29] MEDS ORDERED: IBUPROFEN 600 MG TABLET (FP) PO PRN (18:23)
[2023-08-29] MEDS ORDERED: hydrOXYzine PAMOATE 25 MG CAPSULE (FP) PO PRN (18:23)
[2023-08-29] MEDS ORDERED: MAGNESIUM HYDROX 2400MG/30ML ORAL SUSPENSION 30 ML CUP PO PRN (18:23)
[2023-08-29] MEDS ORDERED: LOPERAMIDE HCL 2 MG CAPSULE PO PRN (18:23)
[2023-08-29] MEDS ORDERED: DICYCLOMINE HCL 10 MG CAPSULE PO PRN (18:23)
[2023-08-29] MEDS ORDERED: BENZOCAINE/MENTHOL (CHLORASEPTIC ) LOZENGE MM PRN (18:23)
[2023-08-29] MEDS ORDERED: P-EPHED 60MG/TRIPROLIDI 2.5MG TABLET PO PRN (18:23)
[2023-08-29] MEDS ORDERED: BISMUTH SUBSALICYLATE 524 MG/30 ML PO PRN (18:23)
[2023-08-29] MEDS ORDERED: MAG HYDROX/AL HYDROX/SIMETH 30 ML UNIT-DOSE CUP PO PRN (18:23)
[2023-08-29] MEDS ORDERED: ACETAMINOPHEN 325 MG TABLET (FP) PO PRN (18:23)
[2023-08-29] MEDS: THIAMINE HCL 100 MG TABLET (FP) PO SCH (22:33)
[2023-08-30] MEDS: PRENATAL VITAMINS W/ FOLIC ACID TABLET (FP) PO SCH (10:14)
[2023-08-30] MEDS: HYDROCHLOROTHIAZIDE 12.5 MG CAPSULE (FP) PO SCH (10:14)
[2023-08-30] MEDS ORDERED: diazePAM 5 MG TABLET PO PRN (10:31)
[2023-08-30 11:15] LABS: CHLORIDE 104 mmol/L (98-107); POTASSIUM 4.2 mmol/L (3.5-5.1); SODIUM 140 mmol/L (136-145)
[2023-08-30 11:17] LABS: HEMATOCRIT 42.7 % (35.4-49); HEMOGLOBIN 14.4 GM/dL (11.7-16.9); MCH 29.5 pg (25.7-33.7); MCHC 33.6 g/dl (32.0-35.9); MEAN CELL VOLUME 87.7 fl (80-96); MEAN PLT VOLUME 6.9 fl (7.5-11.1); PLATELET COUNT 407 10^3/uL (134-434); RBC 4.87 M/mm3 (4.00-5.60); RDW 12.8 % (11.9-15.9)
[2023-08-30] MEDS: diazePAM 5 MG TABLET PO SCH ×3 (11:18→22:14)
[2023-08-30 11:22] LABS: GLUCOSE,RANDOM 92 mg/dL (74-106)
[2023-08-30 11:24] LABS: CREATININE 0.9 mg/dL (0.55-1.3); SGPT/ALT 29 U/L (13-61)
[2023-08-30 11:25] LABS: SGOT/AST 17 U/L (15-37)
[2023-08-30 11:26] LABS: ALBUMIN 3.5 g/dl (3.4-5.0); ANION GAP 4 mmol/L (4-13); BILIRUBIN,TOTAL 0.7 mg/dL (0.2-1); BLOOD UREA NITROGEN 14.4 mg/dL (7-18); CALCIUM 8.7 mg/dL (8.5-10.1); CO2 32 mmol/L (21-32); TOT PROT 6.5 g/dl (6.4-8.2)
[2023-08-30 11:27] LABS: ALK PHOS 93 U/L (45-117)
[2023-08-30] MEDS ORDERED: MIRTAZAPINE 15 MG TABLET (FP) ONE (21:09)
[2023-08-30] MEDS: MELATONIN 5 MG TABLETS PO PRN (22:12)
[2023-08-30] MEDS: MIRTAZAPINE 30 MG TABLET PO SCH (22:13)
[2023-08-30] MEDS: METHOCARBAMOL 500 MG TABLET PO PRN (22:14)
[2023-08-30] MEDS: THIAMINE HCL 100 MG TABLET (FP) PO SCH (22:14)
[2023-08-31] MEDS: diazePAM 5 MG TABLET PO SCH ×4 (06:06→22:35)
[2023-08-31] MEDS: PRENATAL VITAMINS W/ FOLIC ACID TABLET (FP) PO SCH (10:28)
[2023-08-31] MEDS: HYDROCHLOROTHIAZIDE 12.5 MG CAPSULE (FP) PO SCH (10:28)
[2023-08-31] MEDS ORDERED: MIRTAZAPINE 15 MG TABLET (FP) ONE (20:53)
[2023-08-31] MEDS: METHOCARBAMOL 500 MG TABLET PO PRN (22:33)
[2023-08-31] MEDS: THIAMINE HCL 100 MG TABLET (FP) PO SCH (22:33)
[2023-08-31] MEDS: MELATONIN 5 MG TABLETS PO PRN (22:33)
[2023-08-31] MEDS: MIRTAZAPINE 30 MG TABLET PO SCH (22:34)
[2023-09-01] MEDS: diazePAM 5 MG TABLET PO SCH ×2 (06:18→14:22)
[2023-09-01] MEDS: HYDROCHLOROTHIAZIDE 12.5 MG CAPSULE (FP) PO SCH (10:30)
[2023-09-01] MEDS: PRENATAL VITAMINS W/ FOLIC ACID TABLET (FP) PO SCH (10:30)
[2023-09-01 17:53] VITALS: BP 141/92; PULSE 120; RESP 18; TEMP 97.5
[2023-09-02] MEDS ORDERED: diazePAM 5 MG TABLET PO SCH (06:00)
[2023-09-03] MEDS ORDERED: diazePAM 5 MG TABLET PO ONE (06:00)
== END 2023-09-01 18:35 | disposition left against medical advice (07) | DRG 770 ==
LOC: YASAS 14:21 → Y3N 18:25
PROVIDERS: ADMIT Allergy & Immunology; ATTEND Surgery
PROC: HZ2ZZZZ Detoxification Services for Substance Abuse Treatment (ICD-10-PCS; principal; 2023-08-29)
DX: F10.230 Alcohol dependence with withdrawal, uncomplicated (principal); F14.20 Cocaine dependence, uncomplicated; F12.20 Cannabis dependence, uncomplicated; F17.210 Nicotine dependence, cigarettes, uncomplicated; F19.282 Other psychoactive substance dependence with psychoactive substance-induced sleep disorder; F19.24 Other psychoactive substance dependence with psychoactive substance-induced mood disorder; I10 Essential (primary) hypertension
CPT/HCPCS: 36415; 80053; 80307; 85027; 86780; 87635

== ENCOUNTER 2023-09-06 12:15 | Inpatient (IN) | payer OTHER ==
[2023-09-06 12:33] VITALS: BMI 28.5
[2023-09-06] MEDS ORDERED: NALOXONE HCL (KLOXXADO) 8 MG SPRAY NS PRN (13:00)
[2023-09-06] MEDS ORDERED: NICOTINE POLACRILEX 2 MG GUM BUC PRN (13:00)
[2023-09-06] MEDS ORDERED: POLYETHYLENE GLYCOL (HEALTHYLAX) 3350 17 GM PACKET PO PRN (13:00)
[2023-09-06] MEDS ORDERED: BISMUTH SUBSALICYLATE 524 MG/30 ML PO PRN (13:00)
[2023-09-06] MEDS ORDERED: BENZONATATE 200 MG CAPSULE PO PRN (13:00)
[2023-09-06] MEDS ORDERED: IBUPROFEN 400 MG TABLET (FP) PO PRN (13:00)
[2023-09-06] MEDS ORDERED: IBUPROFEN 600 MG TABLET (FP) PO PRN (13:00)
[2023-09-06] MEDS ORDERED: guaiFENesin 600 MG TABLET.ER (FP) PO PRN (13:00)
[2023-09-06] MEDS ORDERED: METHOCARBAMOL 500 MG TABLET PO PRN (13:00)
[2023-09-06] MEDS ORDERED: MAG HYDROX/AL HYDROX/SIMETH 30 ML UNIT-DOSE CUP PO PRN (13:00)
[2023-09-06] MEDS ORDERED: NALOXONE HCL 0.4 MG/ML VIAL IM PRN (13:00)
[2023-09-06] MEDS ORDERED: ONDANSETRON *ODT* 4 MG TABLET SL PRN (13:00)
[2023-09-06] MEDS ORDERED: MAGNESIUM HYDROX 2400MG/30ML ORAL SUSPENSION 30 ML CUP PO PRN (13:00)
[2023-09-06] MEDS ORDERED: LOPERAMIDE HCL 2 MG CAPSULE PO PRN (13:00)
[2023-09-06] MEDS ORDERED: ACETAMINOPHEN 325 MG TABLET (FP) PO PRN (13:00)
[2023-09-06] MEDS: MELATONIN 5 MG TABLETS PO SCH (22:12)
[2023-09-06] MEDS: THIAMINE HCL 100 MG TABLET (FP) PO SCH (22:12)
[2023-09-06] MEDS: hydrOXYzine PAMOATE 25 MG CAPSULE (FP) PO PRN (22:12)
[2023-09-07] MEDS ORDERED: ALBUTEROL SO4 HFA INHALER IH PRN (10:08)
[2023-09-07] MEDS: PRENATAL VITAMINS W/ FOLIC ACID TABLET (FP) PO SCH (10:39)
[2023-09-07] MEDS: diazePAM 5 MG TABLET PO SCH ×3 (10:39→22:28)
[2023-09-07] MEDS: hydrOXYzine PAMOATE 25 MG CAPSULE (FP) PO PRN (10:39)
[2023-09-07] MEDS: NICOTINE 14 MG/24 HOURS TOPICAL PATCH TD SCH (10:39)
[2023-09-07 11:00] LABS: CHLORIDE 108 mmol/L (98-107); POTASSIUM 4.2 mmol/L (3.5-5.1); SODIUM 139 mmol/L (136-145)
[2023-09-07 11:02] LABS: HEMATOCRIT 42.6 % (35.4-49); HEMOGLOBIN 14.1 GM/dL (11.7-16.9); MCH 29.3 pg (25.7-33.7); MCHC 33.2 g/dl (32.0-35.9); MEAN CELL VOLUME 88.5 fl (80-96); MEAN PLT VOLUME 7.3 fl (7.5-11.1); PLATELET COUNT 326 10^3/uL (134-434); RBC 4.82 M/mm3 (4.00-5.60); RDW 12.7 % (11.9-15.9); WHITE BLOOD COUNT 10.1 K/mm3 (4.0-10.0)
[2023-09-07 11:12] LABS: ALBUMIN 3.2 g/dl (3.4-5.0); ANION GAP 2 mmol/L (4-13); BLOOD UREA NITROGEN 13.1 mg/dL (7-18); CALCIUM 8.2 mg/dL (8.5-10.1); CO2 30 mmol/L (21-32); GLUCOSE,RANDOM 99 mg/dL (74-106)
[2023-09-07 11:14] LABS: SGPT/ALT 24 U/L (13-61)
[2023-09-07 11:15] LABS: CREATININE 0.9 mg/dL (0.55-1.3); SGOT/AST 12 U/L (15-37)
[2023-09-07 11:17] LABS: BILIRUBIN,TOTAL 0.3 mg/dL (0.2-1); TOT PROT 5.9 g/dl (6.4-8.2)
[2023-09-07 11:20] LABS: ALK PHOS 93 U/L (45-117)
[2023-09-07] MEDS ORDERED: MIRTAZAPINE 30 MG TABLET PO SCH (22:00)
[2023-09-07] MEDS: MELATONIN 5 MG TABLETS PO SCH (22:28)
[2023-09-07] MEDS: THIAMINE HCL 100 MG TABLET (FP) PO SCH (22:28)
[2023-09-08] MEDS: BENZOCAINE/MENTHOL (CHLORASEPTIC ) LOZENGE MM PRN ×3 (05:13→15:54)
[2023-09-08] MEDS: diazePAM 5 MG TABLET PO SCH ×2 (05:13→13:35)
[2023-09-08] MEDS ORDERED: HYDROCHLOROTHIAZIDE 12.5 MG CAPSULE (FP) PO SCH (10:00)
[2023-09-08] MEDS: PRENATAL VITAMINS W/ FOLIC ACID TABLET (FP) PO SCH (10:09)
[2023-09-08] MEDS: propRANOLol HCL 10 MG TABLET PO SCH ×3 (10:09→17:34)
[2023-09-08] MEDS: NICOTINE 14 MG/24 HOURS TOPICAL PATCH TD SCH (10:09)
[2023-09-08 12:42] VITALS: RESP 18
[2023-09-08 18:55] VITALS: BP 142/82; PULSE 92; TEMP 98
[2023-09-09] MEDS ORDERED: diazePAM 5 MG TABLET PO SCH (06:00)
[2023-09-10] MEDS ORDERED: diazePAM 5 MG TABLET PO ONE (06:00)
== END 2023-09-08 19:03 | disposition left against medical advice (07) | DRG 770 ==
LOC: YASAS 12:15 → Y6N 14:25
PROVIDERS: ADMIT Allergy & Immunology; ATTEND Surgery
PROC: HZ2ZZZZ Detoxification Services for Substance Abuse Treatment (ICD-10-PCS; principal; 2023-09-06)
DX: F10.230 Alcohol dependence with withdrawal, uncomplicated (principal); F14.20 Cocaine dependence, uncomplicated; F12.20 Cannabis dependence, uncomplicated; F17.210 Nicotine dependence, cigarettes, uncomplicated; F19.280 Other psychoactive substance dependence with psychoactive substance-induced anxiety disorder; F19.282 Other psychoactive substance dependence with psychoactive substance-induced sleep disorder; F32.A Depression, unspecified; F43.10 Post-traumatic stress disorder, unspecified; I10 Essential (primary) hypertension; J45.909 Unspecified asthma, uncomplicated; Z56.0 Unemployment, unspecified; Z59.00 Homelessness unspecified
CPT/HCPCS: 36415; 80053; 80307; 85027; 86780; 87635

== ENCOUNTER 2023-10-16 08:20 | Inpatient (IN) | payer OTHER ==
[2023-10-16 09:47] VITALS: BMI 28.6
[2023-10-16] MEDS ORDERED: NALOXONE HCL 0.4 MG/ML VIAL IM PRN (11:40)
[2023-10-16] MEDS ORDERED: METHOCARBAMOL 500 MG TABLET PO PRN (11:40)
[2023-10-16] MEDS ORDERED: MAG HYDROX/AL HYDROX/SIMETH 30 ML UNIT-DOSE CUP PO PRN (11:40)
[2023-10-16] MEDS ORDERED: MAGNESIUM HYDROX 2400MG/30ML ORAL SUSPENSION 30 ML CUP PO PRN (11:40)
[2023-10-16] MEDS ORDERED: IBUPROFEN 600 MG TABLET (FP) PO PRN (11:40)
[2023-10-16] MEDS ORDERED: NALOXONE HCL (KLOXXADO) 8 MG SPRAY NS PRN (11:40)
[2023-10-16] MEDS ORDERED: BISMUTH SUBSALICYLATE 524 MG/30 ML PO PRN (11:40)
[2023-10-16] MEDS ORDERED: IBUPROFEN 400 MG TABLET (FP) PO PRN (11:40)
[2023-10-16] MEDS ORDERED: BENZOCAINE/MENTHOL (CHLORASEPTIC ) LOZENGE MM PRN (11:40)
[2023-10-16] MEDS ORDERED: LOPERAMIDE HCL 2 MG CAPSULE PO PRN (11:40)
[2023-10-16] MEDS ORDERED: NICOTINE 21 MG/24 HOURS TOPICAL PATCH TD PRN (11:40)
[2023-10-16] MEDS ORDERED: ONDANSETRON *ODT* 4 MG TABLET SL PRN (11:40)
[2023-10-16] MEDS ORDERED: POLYETHYLENE GLYCOL (HEALTHYLAX) 3350 17 GM PACKET PO PRN (11:40)
[2023-10-16] MEDS ORDERED: BENZONATATE 200 MG CAPSULE PO PRN (11:40)
[2023-10-16] MEDS ORDERED: hydrOXYzine PAMOATE 25 MG CAPSULE (FP) PO PRN (11:40)
[2023-10-16] MEDS ORDERED: guaiFENesin 600 MG TABLET.ER (FP) PO PRN (11:40)
[2023-10-16] MEDS ORDERED: ACETAMINOPHEN 325 MG TABLET (FP) PO PRN (11:40)
[2023-10-16] MEDS ORDERED: DICYCLOMINE HCL 10 MG CAPSULE PO PRN (11:40)
[2023-10-16] MEDS ORDERED: ALBUTEROL SO4 HFA INHALER IH PRN (11:45)
[2023-10-16] MEDS: MELATONIN 5 MG TABLETS PO SCH (22:28)
[2023-10-16] MEDS: THIAMINE HCL 100 MG TABLET (FP) PO SCH (22:28)
[2023-10-17] MEDS: PRENATAL VITAMINS W/ FOLIC ACID TABLET (FP) PO SCH (10:35)
[2023-10-17] MEDS: HYDROCHLOROTHIAZIDE 12.5 MG CAPSULE (FP) PO SCH (10:36)
[2023-10-17 11:34] LABS: HEMOGLOBIN 13.2 GM/dL (11.7-16.9); MCH 29.7 pg (25.7-33.7); MCHC 33.9 g/dl (32.0-35.9); MEAN CELL VOLUME 87.7 fl (80-96); MEAN PLT VOLUME 6.9 fl (7.5-11.1); PLATELET COUNT 329 10^3/uL (134-434); RBC 4.44 M/mm3 (4.00-5.60); RDW 13.1 % (11.9-15.9); WHITE BLOOD COUNT 9.5 K/mm3 (4.0-10.0)
[2023-10-17 12:02] LABS: CHLORIDE 108 mmol/L (98-107); POTASSIUM 3.9 mmol/L (3.5-5.1); SODIUM 142 mmol/L (136-145)
[2023-10-17 12:07] LABS: ANION GAP 4 mmol/L (4-13); BLOOD UREA NITROGEN 10.1 mg/dL (7-18); CALCIUM 8.3 mg/dL (8.5-10.1); CO2 30 mmol/L (21-32); GLUCOSE,RANDOM 125 mg/dL (74-106)
[2023-10-17 12:10] LABS: CREATININE 0.8 mg/dL (0.55-1.3); SGOT/AST 69 U/L (15-37); SGPT/ALT 73 U/L (13-61)
[2023-10-17 12:11] LABS: BILIRUBIN,TOTAL 0.2 mg/dL (0.2-1); TOT PROT 5.8 g/dl (6.4-8.2)
[2023-10-17 12:13] LABS: ALK PHOS 93 U/L (45-117)
[2023-10-17 13:08] VITALS: RESP 18
[2023-10-17] MEDS: diazePAM 5 MG TABLET PO SCH ×2 (17:28→22:38)
[2023-10-17] MEDS ORDERED: MIRTAZAPINE 30 MG TABLET PO SCH (22:00)
[2023-10-17] MEDS: MELATONIN 5 MG TABLETS PO SCH (22:37)
[2023-10-17] MEDS: THIAMINE HCL 100 MG TABLET (FP) PO SCH (22:37)
[2023-10-17] MEDS ORDERED: NICOTINE POLACRILEX 4 MG GUM BUC PRN (23:43)
[2023-10-18] MEDS: diazePAM 5 MG TABLET PO SCH ×2 (07:00→13:25)
[2023-10-18] MEDS: HYDROCHLOROTHIAZIDE 12.5 MG CAPSULE (FP) PO SCH (10:27)
[2023-10-18] MEDS: PRENATAL VITAMINS W/ FOLIC ACID TABLET (FP) PO SCH (10:27)
[2023-10-18 18:35] VITALS: BP 136/85; PULSE 98; TEMP 97.9
[2023-10-19] MEDS ORDERED: diazePAM 5 MG TABLET PO SCH (06:00)
[2023-10-20] MEDS ORDERED: diazePAM 5 MG TABLET PO ONE (06:00)
== END 2023-10-18 17:12 | disposition left against medical advice (07) | DRG 770 ==
LOC: YASAS 08:20 → Y6N 12:00
PROVIDERS: ADMIT Allergy & Immunology; ATTEND Psychiatry & Neurology Pain Medicine
PROC: HZ2ZZZZ Detoxification Services for Substance Abuse Treatment (ICD-10-PCS; principal; 2023-10-16)
DX: F10.230 Alcohol dependence with withdrawal, uncomplicated (principal); F14.20 Cocaine dependence, uncomplicated; F12.20 Cannabis dependence, uncomplicated; F17.210 Nicotine dependence, cigarettes, uncomplicated; F19.280 Other psychoactive substance dependence with psychoactive substance-induced anxiety disorder; F41.9 Anxiety disorder, unspecified; F32.A Depression, unspecified; I10 Essential (primary) hypertension; J45.20 Mild intermittent asthma, uncomplicated
CPT/HCPCS: 36415; 80053; 80307; 85027; 86780; 87635; 93005; 93010

== ENCOUNTER 2023-11-23 06:54 | Inpatient (IN) | payer OTHER ==
[2023-11-23 07:10] VITALS: BMI 30.5
[2023-11-23] MEDS ORDERED: IBUPROFEN 400 MG TABLET (FP) PO PRN (09:24)
[2023-11-23] MEDS ORDERED: LOPERAMIDE HCL 2 MG CAPSULE PO PRN (09:24)
[2023-11-23] MEDS ORDERED: MAGNESIUM HYDROX 2400MG/30ML ORAL SUSPENSION 30 ML CUP PO PRN (09:24)
[2023-11-23] MEDS ORDERED: guaiFENesin 600 MG TABLET.ER (FP) PO PRN (09:24)
[2023-11-23] MEDS ORDERED: BENZOCAINE/MENTHOL (CHLORASEPTIC ) LOZENGE MM PRN (09:24)
[2023-11-23] MEDS ORDERED: MAG HYDROX/AL HYDROX/SIMETH 30 ML UNIT-DOSE CUP PO PRN (09:24)
[2023-11-23] MEDS ORDERED: ACETAMINOPHEN 325 MG TABLET (FP) PO PRN (09:24)
[2023-11-23] MEDS ORDERED: POLYETHYLENE GLYCOL (HEALTHYLAX) 3350 17 GM PACKET PO PRN (09:24)
[2023-11-23] MEDS ORDERED: NALOXONE HCL (KLOXXADO) 8 MG SPRAY NS PRN (09:24)
[2023-11-23] MEDS ORDERED: BENZONATATE 200 MG CAPSULE PO PRN (09:24)
[2023-11-23] MEDS ORDERED: NALOXONE HCL 0.4 MG/ML VIAL IM PRN (09:24)
[2023-11-23] MEDS ORDERED: ALBUTEROL SO4 HFA INHALER IH PRN (09:27)
[2023-11-23] MEDS: PRENATAL VITAMINS W/ FOLIC ACID TABLET (FP) PO SCH (13:04)
[2023-11-23] MEDS: NICOTINE 14 MG/24 HOURS TOPICAL PATCH TD SCH (13:04)
[2023-11-23] MEDS: HYDROCHLOROTHIAZIDE 12.5 MG CAPSULE (FP) PO SCH (13:09)
[2023-11-23 18:28] LABS: URINE APPEARANCE CLEAR; URINE BILIRUBIN NEGATIVE (NEGATIVE); URINE COLOR YELLOW; URINE GLUCOSE (UA) NEGATIVE (NEGATIVE); URINE KETONE NEGATIVE (NEGATIVE); URINE LEUK ESTERASE NEGATIVE (NEGATIVE); URINE NITRITE NEGATIVE (NEGATIVE); URINE PROTEIN NEGATIVE (NEGATIVE)
[2023-11-23] MEDS: hydrOXYzine PAMOATE 25 MG CAPSULE (FP) PO PRN (21:14)
[2023-11-23] MEDS: THIAMINE HCL 100 MG TABLET (FP) PO SCH (21:14)
[2023-11-23] MEDS: MELATONIN 5 MG TABLETS PO SCH (21:14)
[2023-11-24 12:08] LABS: HEMATOCRIT 38.7 % (35.4-49); HEMOGLOBIN 13.4 GM/dL (11.7-16.9); MCH 29.9 pg (25.7-33.7); MCHC 34.5 g/dl (32.0-35.9); MEAN CELL VOLUME 86.6 fl (80-96); MEAN PLT VOLUME 6.9 fl (7.5-11.1); PLATELET COUNT 414 10^3/uL (134-434); RBC 4.47 M/mm3 (4.00-5.60); RDW 13.4 % (11.9-15.9); WHITE BLOOD COUNT 9.7 K/mm3 (4.0-10.0)
[2023-11-24 12:21] LABS: POTASSIUM 4.1 mmol/L (3.5-5.1)
[2023-11-24 12:23] LABS: ALBUMIN 3.7 g/dl (3.4-5.0); BLOOD UREA NITROGEN 16.2 mg/dL (7-18); CALCIUM 8.9 mg/dL (8.5-10.1)
[2023-11-24 12:28] LABS: BILIRUBIN,TOTAL 0.5 mg/dL (0.2-1); TOT PROT 7.2 g/dl (6.4-8.2)
[2023-11-24] MEDS: MIRTAZAPINE 30 MG TABLET PO SCH (21:11)
[2023-11-24] MEDS: NICOTINE POLACRILEX 2 MG GUM BUC PRN (21:12)
[2023-12-01 06:39] VITALS: RESP 16
[2023-12-01] MEDS: IBUPROFEN 600 MG TABLET (FP) PO PRN (08:46)
[2023-12-02 06:57] VITALS: TEMP 98
[2023-12-02 08:53] VITALS: BP 144/88; PULSE 93
== END 2023-12-02 10:16 | disposition home or self-care (01) | DRG 772 ==
LOC: YASAS 06:54 → Y3E 13:14
PROVIDERS: ADMIT Allergy & Immunology; ATTEND Psychiatry & Neurology Pain Medicine
PROC: HZ42ZZZ Group Counseling for Substance Abuse Treatment, Cognitive-Behavioral (ICD-10-PCS; principal; 2023-11-23)
DX: F14.20 Cocaine dependence, uncomplicated (principal); F10.20 Alcohol dependence, uncomplicated; F13.20 Sedative, hypnotic or anxiolytic dependence, uncomplicated; F17.210 Nicotine dependence, cigarettes, uncomplicated; F19.282 Other psychoactive substance dependence with psychoactive substance-induced sleep disorder; F41.9 Anxiety disorder, unspecified; F32.A Depression, unspecified; I10 Essential (primary) hypertension; J45.20 Mild intermittent asthma, uncomplicated; G47.00 Insomnia, unspecified; Z56.0 Unemployment, unspecified; Z59.00 Homelessness unspecified
CPT/HCPCS: 36415; 80053; 80307; 81003; 83036; 85027; 86780; 87635

== ENCOUNTER 2024-01-02 15:27 | Inpatient (IN) | payer OTHER ==
[2024-01-02 16:53] VITALS: BMI 29.0
[2024-01-02] MEDS ORDERED: POLYETHYLENE GLYCOL (HEALTHYLAX) 3350 17 GM PACKET PO PRN (17:12)
[2024-01-02] MEDS ORDERED: BISMUTH SUBSALICYLATE 524 MG/30 ML PO PRN (17:12)
[2024-01-02] MEDS ORDERED: DICYCLOMINE HCL 10 MG CAPSULE PO PRN (17:12)
[2024-01-02] MEDS ORDERED: IBUPROFEN 400 MG TABLET (FP) PO PRN (17:12)
[2024-01-02] MEDS ORDERED: BENZONATATE 200 MG CAPSULE PO PRN (17:12)
[2024-01-02] MEDS ORDERED: MAGNESIUM HYDROX 2400MG/30ML ORAL SUSPENSION 30 ML CUP PO PRN (17:12)
[2024-01-02] MEDS ORDERED: MAG HYDROX/AL HYDROX/SIMETH 30 ML UNIT-DOSE CUP PO PRN (17:12)
[2024-01-02] MEDS ORDERED: BENZOCAINE/MENTHOL (CHLORASEPTIC ) LOZENGE MM PRN (17:12)
[2024-01-02] MEDS ORDERED: P-EPHED 60MG/TRIPROLIDI 2.5MG TABLET PO PRN (17:12)
[2024-01-02] MEDS ORDERED: LOPERAMIDE HCL 2 MG CAPSULE PO PRN (17:12)
[2024-01-02] MEDS ORDERED: guaiFENesin 600 MG TABLET.ER (FP) PO PRN (17:12)
[2024-01-02] MEDS ORDERED: NICOTINE POLACRILEX 2 MG GUM BUC PRN (17:12)
[2024-01-02] MEDS ORDERED: ONDANSETRON *ODT* 4 MG TABLET ONE (18:12)
[2024-01-02] MEDS: ONDANSETRON *ODT* 4 MG TABLET SL PRN (18:15)
[2024-01-02] MEDS: IBUPROFEN 600 MG TABLET (FP) PO PRN (18:35)
[2024-01-02] MEDS: ACETAMINOPHEN 325 MG TABLET (FP) PO PRN (21:54)
[2024-01-02] MEDS: THIAMINE HCL 100 MG TABLET (FP) PO SCH (21:55)
[2024-01-02] MEDS: MELATONIN 5 MG TABLETS PO SCH (21:55)
[2024-01-02] MEDS: METHOCARBAMOL 500 MG TABLET PO PRN (21:55)
[2024-01-03 10:04] LABS: HEMATOCRIT 41.1 % (35.4-49); HEMOGLOBIN 13.5 GM/dL (11.7-16.9); MCH 28.3 pg (25.7-33.7); MCHC 32.8 g/dl (32.0-35.9); MEAN CELL VOLUME 86.1 fl (80-96); MEAN PLT VOLUME 7.2 fl (7.5-11.1); PLATELET COUNT 348 10^3/uL (134-434); RBC 4.78 M/mm3 (4.00-5.60); RDW 13.7 % (11.9-15.9); WHITE BLOOD COUNT 7.2 K/mm3 (4.0-10.0)
[2024-01-03 10:12] LABS: POTASSIUM 4.2 mmol/L (3.5-5.1)
[2024-01-03] MEDS ORDERED: chlordiazePOXIDE HCL 25 MG CAPSULE PO PRN (10:18)
[2024-01-03 10:27] LABS: BLOOD UREA NITROGEN 13.8 mg/dL (7-18); CALCIUM 8.6 mg/dL (8.5-10.1)
[2024-01-03 10:30] LABS: CREATININE 0.8 mg/dL (0.55-1.3)
[2024-01-03 10:32] LABS: BILIRUBIN,TOTAL 0.2 mg/dL (0.2-1); TOT PROT 6.1 g/dl (6.4-8.2)
[2024-01-03] MEDS: PRENATAL VITAMINS W/ FOLIC ACID TABLET (FP) PO SCH (10:32)
[2024-01-03] MEDS: chlordiazePOXIDE HCL 25 MG CAPSULE PO SCH (11:16)
[2024-01-03] MEDS: traZODone HCL 50 MG TABLET (FP) PO SCH (22:13)
[2024-01-04 17:06] VITALS: BP 123/61; PULSE 77; RESP 16; TEMP 98
[2024-01-05] MEDS ORDERED: chlordiazePOXIDE HCL 25 MG CAPSULE PO SCH (05:00)
[2024-01-06] MEDS ORDERED: chlordiazePOXIDE HCL 10 MG CAPSULE PO PRN
[2024-01-06] MEDS ORDERED: chlordiazePOXIDE HCL 10 MG CAPSULE PO SCH (05:00)
[2024-01-07] MEDS ORDERED: chlordiazePOXIDE HCL 10 MG CAPSULE PO SCH (05:00)
[2024-01-08] MEDS ORDERED: chlordiazePOXIDE HCL 10 MG CAPSULE PO ONE (05:00)
== END 2024-01-04 19:45 | disposition left against medical advice (07) | DRG 770 ==
LOC: YASAS 15:27 → Y3N 17:48
PROVIDERS: ADMIT Allergy & Immunology; ATTEND Surgery
PROC: HZ2ZZZZ Detoxification Services for Substance Abuse Treatment (ICD-10-PCS; principal; 2024-01-02)
DX: F10.230 Alcohol dependence with withdrawal, uncomplicated (principal); F14.20 Cocaine dependence, uncomplicated; F12.20 Cannabis dependence, uncomplicated; F17.210 Nicotine dependence, cigarettes, uncomplicated; F19.24 Other psychoactive substance dependence with psychoactive substance-induced mood disorder; F41.9 Anxiety disorder, unspecified; F32.A Depression, unspecified; G47.00 Insomnia, unspecified; I10 Essential (primary) hypertension
CPT/HCPCS: 0241U-QW; 36415; 80053; 80305; 85027; 86780; 87811; Q0162

== ENCOUNTER 2024-03-20 06:18 | Inpatient (IN) | payer OTHER ==
[2024-03-20 06:58] VITALS: BMI 27.6
[2024-03-20] MEDS ORDERED: POLYETHYLENE GLYCOL (HEALTHYLAX) 3350 17 GM PACKET PO PRN (09:31)
[2024-03-20] MEDS ORDERED: IBUPROFEN 600 MG TABLET (FP) PO PRN (09:31)
[2024-03-20] MEDS ORDERED: LOPERAMIDE HCL 2 MG CAPSULE PO PRN (09:31)
[2024-03-20] MEDS ORDERED: BENZONATATE 200 MG CAPSULE PO PRN (09:31)
[2024-03-20] MEDS ORDERED: guaiFENesin 600 MG TABLET.ER (FP) PO PRN (09:31)
[2024-03-20] MEDS ORDERED: MAGNESIUM HYDROX 2400MG/30ML ORAL SUSPENSION 30 ML CUP PO PRN (09:31)
[2024-03-20] MEDS ORDERED: DOCUSATE SODIUM 100 MG CAPSULE (FP) PO PRN (09:31)
[2024-03-20] MEDS ORDERED: IBUPROFEN 400 MG TABLET (FP) PO PRN (09:31)
[2024-03-20] MEDS ORDERED: BENZOCAINE/MENTHOL (CHLORASEPTIC ) LOZENGE MM PRN (09:31)
[2024-03-20] MEDS ORDERED: ACETAMINOPHEN 325 MG TABLET (FP) PO PRN (09:31)
[2024-03-20] MEDS: PRENATAL VITAMINS W/ FOLIC ACID TABLET (FP) PO SCH (10:52)
[2024-03-20] MEDS ORDERED: PRENATAL VITAMINS W/ FOLIC ACID TABLET (FP) PO ONE (10:54)
[2024-03-20] MEDS ORDERED: ALBUTEROL SO4 HFA INHALER IH PRN (13:09)
[2024-03-20 17:04] LABS: BASO % 0.6 % (0-2.0); CHLORIDE 106 mmol/L (98-107); EOS % 4.2 % (0-4.5); HEMOGLOBIN 14.9 GM/dL (11.7-16.9); LYMPH % 25.2 % (8-40); MCH 29.6 pg (25.7-33.7); MCHC 34.6 g/dl (32.0-35.9); MEAN CELL VOLUME 85.6 fl (80-96); MEAN PLT VOLUME 7.2 fl (7.5-11.1); MONO % 8.9 % (3.8-10.2); NEUT % 61.1 % (42.8-82.8); PLATELET COUNT 299 10^3/uL (134-434); POTASSIUM 4.5 mmol/L (3.5-5.1); RBC 5.03 M/mm3 (4.00-5.60); RDW 13.9 % (11.9-15.9); SODIUM 138 mmol/L (136-145); WHITE BLOOD COUNT 8.1 K/mm3 (4.0-10.0)
[2024-03-20 17:05] LABS: CALCIUM 8.6 mg/dL (8.5-10.1)
[2024-03-20 17:06] LABS: ALBUMIN 3.2 g/dl (3.4-5.0); ANION GAP 2 mmol/L (4-13); BLOOD UREA NITROGEN 11.4 mg/dL (7-18); CO2 30 mmol/L (21-32); GLUCOSE,RANDOM 98 mg/dL (74-106)
[2024-03-20 17:09] LABS: CREATININE 0.8 mg/dL (0.55-1.3); SGOT/AST 29 U/L (15-37); SGPT/ALT 33 U/L (13-61)
[2024-03-20 17:11] LABS: BILIRUBIN,TOTAL 0.4 mg/dL (0.2-1); TOT PROT 5.8 g/dl (6.4-8.2)
[2024-03-20 17:12] LABS: ALK PHOS 94 U/L (45-117)
[2024-03-20] MEDS: MELATONIN 5 MG TABLETS PO SCH (22:26)
[2024-03-20] MEDS: MIRTAZAPINE 15 MG TABLET (FP) PO SCH (22:26)
[2024-03-20] MEDS: THIAMINE 100 MG TABLET PO SCH (22:26)
[2024-03-20 23:07] LABS: URINE APPEARANCE CLEAR; URINE BILIRUBIN NEGATIVE (NEGATIVE); URINE COLOR YELLOW; URINE GLUCOSE (UA) NEGATIVE (NEGATIVE); URINE KETONE NEGATIVE (NEGATIVE); URINE LEUK ESTERASE NEGATIVE (NEGATIVE); URINE NITRITE NEGATIVE (NEGATIVE); URINE PROTEIN NEGATIVE (NEGATIVE); URINE UROBILINOGEN 0.2 mg/dL (0.2-1.0)
[2024-03-21] MEDS: HYDROCHLOROTHIAZIDE 12.5 MG CAPSULE (FP) PO SCH (09:49)
[2024-03-21 11:48] LABS: HEMATOCRIT 42.3 % (35.4-49); HEMOGLOBIN 14.5 GM/dL (11.7-16.9); MCH 29.2 pg (25.7-33.7); MCHC 34.4 g/dl (32.0-35.9); MEAN CELL VOLUME 84.9 fl (80-96); MEAN PLT VOLUME 7.2 fl (7.5-11.1); PLATELET COUNT 297 10^3/uL (134-434); RBC 4.98 M/mm3 (4.00-5.60); RDW 13.8 % (11.9-15.9)
[2024-03-21] MEDS: NICOTINE POLACRILEX 2 MG GUM BUC PRN (21:33)
[2024-03-22] MEDS: HYDROCHLOROTHIAZIDE 12.5 MG CAPSULE (FP) PO ONE (12:45)
[2024-03-23] MEDS: MAG HYDROX/AL HYDROX/SIMETH 30 ML UNIT-DOSE CUP PO PRN (04:39)
[2024-03-23] MEDS: HYDROCHLOROTHIAZIDE 12.5 MG CAPSULE (FP) PO SCH (10:15)
[2024-03-24] MEDS: hydrOXYzine PAMOATE 25 MG CAPSULE (FP) PO PRN (21:26)
[2024-03-25] MEDS: NICOTINE POLACRILEX 2 MG LOZENGE BC PRN (21:19)
[2024-03-28] MEDS: traZODone HCL 100 MG TABLET (FP) PO SCH (21:16)
[2024-03-29] MEDS: P-EPHED 60MG/TRIPROLIDI 2.5MG TABLET PO PRN (00:25)
[2024-03-29] MEDS ORDERED: NICOTINE POLACRILEX 2 MG LOZENGE BC PRN (13:10)
[2024-03-29] MEDS ORDERED: NICOTINE POLACRILEX 2 MG GUM BUC PRN (13:11)
[2024-03-29] MEDS ORDERED: NICOTINE POLACRILEX 4 MG LOZENGE BC PRN (13:13)
[2024-03-29] MEDS: traZODone HCL 50 MG TABLET (FP) PO SCH (21:25)
[2024-03-29] MEDS: BACLOFEN 10 MG TABLET (FP) PO SCH (21:25)
[2024-03-29] MEDS: NICOTINE POLACRILEX 4 MG GUM BUC PRN (21:28)
[2024-03-30 14:59] VITALS: RESP 18
[2024-03-31 07:50] VITALS: TEMP 97.6
[2024-03-31 09:19] VITALS: BP 132/79; PULSE 112
== END 2024-03-31 10:28 | disposition left against medical advice (07) | DRG 770 ==
LOC: YASAS 06:18 → Y3NR 11:51 → Y5N 03-21 15:49
PROVIDERS: ADMIT Allergy & Immunology; ATTEND Psychiatry & Neurology Pain Medicine
PROC: HZ42ZZZ Group Counseling for Substance Abuse Treatment, Cognitive-Behavioral (ICD-10-PCS; principal; 2024-03-20)
DX: F10.20 Alcohol dependence, uncomplicated (principal); F14.20 Cocaine dependence, uncomplicated; F12.20 Cannabis dependence, uncomplicated; F17.210 Nicotine dependence, cigarettes, uncomplicated; F19.24 Other psychoactive substance dependence with psychoactive substance-induced mood disorder; F32.A Depression, unspecified; G47.00 Insomnia, unspecified; J45.909 Unspecified asthma, uncomplicated; R00.0 Tachycardia, unspecified; Z86.59 Personal history of other mental and behavioral disorders; Z91.199 Patient's noncompliance with other medical treatment and regimen due to unspecified reason
CPT/HCPCS: 36415; 80053; 80305; 80307; 81003; 85025; 85027; 86780; 86803; 87811; 93005; 93010; J0475